=== PATIENT | male | born 1980 | race African-American/Black ===

== ENCOUNTER 2019-07-02 10:44 | Outpatient (CLI) | payer OTHER, SELFPAY ==
--- NOTE | ~2019-07-02 | XR_ITS ---
EXAMINATION: XR chest 2V 07/02/2019 10:59 INDICATION: Shortness of breath PROCEDURE: 2 view chest COMPARISON: 01/14/2019 FINDINGS: The lungs are clear. The cardiomediastinal silhouette is within normal limits. There are no pleural effusions. There is no pneumothorax suspected. There is dextroscoliosis of the lower tho racic spine. IMPRESSION: 1: NO ACUTE CARDIOPULMONARY DISEASE. Reviewed, dictated and finalized at location A.
== END 2019-07-02 10:45 | disposition home or self-care (01) ==
LOC: ANHIMG 10:48
PROVIDERS: PCP Internal Medicine; Visit Provider Internal Medicine
DX: R06.02 Shortness of breath (principal)
CPT/HCPCS: 71046

== ENCOUNTER 2019-11-24 11:18 | Outpatient (CLI) | payer OTHER, SELFPAY ==
--- NOTE | ~2019-11-24 | CT_ITS ---
EXAMINATION: CT abdomen pelvis wo/w con EXAM DATE: 11/24/2019 12:14 INDICATION: Right lower quadrant pain. Clinical concern for appendicitis. TECHNIQUE: Spiral CT of the abdomen without contrast followed by both abdomen and pelvis with 100 cc intravenous Omnipaque 350. Axial, coronal and sagittal images were reviewed. The dose-length produc t (DLP) for this examination was 2174.83 mGy-cm. The exposure was tailored according to patient size (auto mA exposure control), and iterative reconstruction (ASIR) was used as additional dose reductio n technique. Comparison is made to prior examination from 12/28/2015. FINDINGS: Appendix is normal. The liver, spleen, adrenal glands and pancreas are unremarkable. Gall bladder is unremarkable. No biliary obstruction. Portal and splenic veins are patent. Kidneys enha nce symmetrically. There is no hydronephrosis. No nephrolithiasis on the precontrast evaluation. Th e prostate is unremarkable. The bladder is unremarkable. There is no retroperitoneal or pelvic lymp hadenopathy. Small umbilical fat-containing hernia. The stomach and small bowel are unremarkable. There is expected amount of colonic stool. No free i ntraperitoneal gas. The heart is normal in size. There are no pericardial or pleural effusions. T he lung bases are unremarkable. There is mild thoracolumbar scoliosis. IMPRESSION: 1. No acute intra-abdominal findings. 2. Normal appendix. Reviewed, dictated and finalized at location B.
[2019-11-24 11:46] LABS: Basophils Absolute Auto 0.1 K/mm3 (0.0-0.1); Basophils Percent Auto 0.7 % (0.2-1.2); Eosinophils Absolute Auto 0.5 K/mm3 (0-0.3); Eosinophils Percent Auto 6.9 % (0-4.4); Hematocrit 41.8 % (42.0-52.0); Hemoglobin 13.4 g/dL (14.0-18.0); Immature Granulocyte Absolute 0.02 K/mm3 (0.00-0.031); Immature Granulocyte Percent A 0.3 % (0-0.5); Lymphocytes Absolute Auto 2.97 K/mm3 (0.9-3.2); Lymphocytes Percent Auto 42.6 % (18.3-44.2); Mean Corpuscular HGB Conc 32.1 g/dl (32-36); Mean Corpuscular Hemoglobin 27.2 pg (26-34); Mean Corpuscular Volume 84.8 fl (80-100); Mean Platelet Volume 11.1 fl (7.4-10.4); Monocytes Absolute Auto 0.5 K/mm3 (0.1-0.6); Monocytes Percent Auto 6.4 % (2.6-8.5); Neutrophils Percent Auto 43.1 % (45.5-73.1); Platelet Count Result 171 k/mm3 (150-375); Red Blood Count 4.93 M/mm3 (4.6-6.20); Red Cell Distribution Width 13.2 % (11.5-14.5)
[2019-11-24 11:53] LABS: Add Urine Microscopic? NO; Appearance Urine Clear (Clear); Bilirubin Urine Negative (Negative); Blood Urine Negative (Negative); Color Urine Straw (Yellow); Glucose Urine UA Negative (Negative); Ketones Urine Negative (Negative); Leukocyte Esterase Ur Negative LEU/UL (NEGATIVE); Mucus Urine Rare /lpf; Nitrate Urine Negative (Negative); Protein Urine Negative (Negative); RBC Urine 0-2 /hpf (0-2); Specific Grav Ur 1.013 (1.001-1.035); Squamous Epithelial Cell Urine Rare /hpf (Few); Urobilinogen Urine Negative mg/dL (<2.0); WBC Urine 0-3 /hpf (0-3)
[2019-11-24 11:58] LABS: Alanine Aminotransferase 51 U/L (4-50); Albumin Level 4.6 g/dL (3.5-5.1); Alkaline Phosphatase 64 U/L (38-126); Amylase 182 U/L (30-110); Anion Gap 7 mmol/L (8-16); Aspartate Amino Transferase 47 U/L (17-59); Bilirubin,Total 0.4 mg/dL (0.2-1.3); Blood Urea Nitrogen 14 mg/dL (9-20); Calcium 9.2 mg/dL (8.4-10.2); Carbon Dioxide 27 mmol/L (22-30); Chloride 102 mmol/L (98-107); Cholesterol 195 mg/dL (0-200); Estimated Glomerular Filt Rate > 60; Glucose 101 mg/dL (75-110); HDL Direct 38 mg/dL; Lipase 145 U/L (23-300); Potassium 4.5 mmol/L (3.4-5.0); Sodium 136 mmol/L (137-145); Triglycerides 120 mg/dL (<150)
[2019-11-24 12:09] LABS: LDL Cholesterol Direct 133 mg/dL
== END 2019-11-24 11:19 | disposition home or self-care (01) ==
PROVIDERS: PCP Internal Medicine; Visit Provider Internal Medicine
DX: R10.9 Unspecified abdominal pain (principal); K37 Unspecified appendicitis; E78.00 Pure hypercholesterolemia, unspecified; E78.5 Hyperlipidemia, unspecified; Z79.899 Other long term (current) drug therapy
CPT/HCPCS: 36415; 74178; 80053; 80061; 81003; 82150; 83036; 83690; 84443; 85025; Q9967

== ENCOUNTER 2019-12-02 08:59 | Emergency (ER) | payer OTHER, SELFPAY ==
--- NOTE | ~2019-12-02 | US_ITS ---
EXAMINATION: US right upper quadrant EXAM DATE: 12/02/2019 10:03 INDICATION: Right upper quadrant pain. TECHNIQUE: Multiple grayscale and Doppler images of the abdomen right upper quadrant were obtained (b y a technologist who performed the scan) and subsequently reviewed. There is no prior study for maxwell garibay. FINDINGS: The pancreatic head and body are normal in appearance. The pancreatic tail is not visualized. There is echogenic liver parenchyma, hepatic steatosis. There are no focal liver lesions identified. Th ere is no evidence of intrahepatic biliary duct dilation. Portal venous flow was seen in the hepatop edal, normal direction and has normal Doppler waveform. No right-sided hydronephrosis. Common bile poorly visualized from bowel gas but probably within normal limits given that dilated clarissa ts should be easier to identify. The gallbladder wall is normal in thickness, with expected amount of distention. No sonographic evidence of pericholecystic fluid. There is no cholelithiases. Technolo gist performing exam reports patient did not demonstrate sonographic Dugan's sign. Please note that this sign is less reliable in patients who have received pain medication. IMPRESSION: 1. Hepatic steatosis. 2. Unremarkable gallbladder. Reviewed, dictated and finalized at location A.
[2019-12-02 09:10] VITALS: BP 142/86; PULSE 61; RESP 18; TEMP 36.2; O2SAT 100
[2019-12-02 09:17] LABS: Basophils Absolute Auto 0.1 K/mm3 (0.0-0.1); Basophils Percent Auto 1.6 % (0.2-1.2); Eosinophils Absolute Auto 0.4 K/mm3 (0-0.3); Eosinophils Percent Auto 7.1 % (0-4.4); Hematocrit 44.1 % (42.0-52.0); Hemoglobin 14.2 g/dL (14.0-18.0); Immature Granulocyte Absolute 0.01 K/mm3 (0.00-0.031); Immature Granulocyte Percent A 0.2 % (0-0.5); Lymphocytes Absolute Auto 2.74 K/mm3 (0.9-3.2); Mean Corpuscular HGB Conc 32.2 g/dl (32-36); Mean Corpuscular Hemoglobin 27.8 pg (26-34); Mean Corpuscular Volume 86.3 fl (80-100); Mean Platelet Volume 11.3 fl (7.4-10.4); Monocytes Absolute Auto 0.4 K/mm3 (0.1-0.6); Monocytes Percent Auto 7.3 % (2.6-8.5); Neutrophils Absolute Auto 1.9 K/mm3 (1.3-6.7); Neutrophils Percent Auto 33.8 % (45.5-73.1); Platelet Count Result 173 k/mm3 (150-375); Red Blood Count 5.11 M/mm3 (4.6-6.20); Red Cell Distribution Width 13.2 % (11.5-14.5); White Blood Count 5.5 K/mm3 (4.5-10.0)
[2019-12-02 09:29] LABS: Alanine Aminotransferase 54 U/L (4-50); Albumin Level 4.7 g/dL (3.5-5.1); Alkaline Phosphatase 63 U/L (38-126); Anion Gap 8 mmol/L (8-16); Aspartate Amino Transferase 56 U/L (17-59); Bilirubin,Total 0.4 mg/dL (0.2-1.3); Blood Urea Nitrogen 13 mg/dL (9-20); Calcium 9.7 mg/dL (8.4-10.2); Carbon Dioxide 29 mmol/L (22-30); Chloride 102 mmol/L (98-107); Estimated CRCL calculation 106 ml/min; Estimated Glomerular Filt Rate > 60; Glucose 103 mg/dL (75-110); Lipase 185 U/L (23-300); Potassium 4.5 mmol/L (3.4-5.0); Sodium 139 mmol/L (137-145)
--- NOTE | 2019-12-02 09:37 | ED.ABDPAIN ---
HPI - Abdominal Pain General Chief Complaint: Abdominal Pain Stated Complaint: abd pain Time Seen by Provider: 12/02/19 09:06 History of Present Illness HPI narrative: Right sided abdominal pain for the past [address] and labs on 11/23. Today pain was worse and he had one episode of vomiting, which he had not had previously. At the time f my evaluation he has only mild pain. Nuasea resolved. Related Data Home Medications Medication Instructions Recorded Confirmed cabergoline 0.5 mg tablet 0.5 mg PO 2XW 02/10/19 losartan 25 mg tablet 12.5 mg PO DAILY tablet 02/10/19 metoprolol succinate 25 mg 25 mg PO DAILY 02/10/19 tablet,extended release 24 hr multivitamin-ferrous 1 tablet PO DAILY 02/10/19 fumarate-folic acid 18 mg-400 mcg tablet pantoprazole 40 mg tablet,delayed 40 mg PO QAM 02/10/19 release fluticasone propionate INTRANASAL 12/02/19 testosterone [Androderm] 12/02/19 Allergies Allergy/AdvReac Type Severity Reaction Status Date / Time lisinopril Allergy Unknown Cough Verified 12/02/19 09:18 shellfish derived Allergy Unknown break out Verified 12/02/19 09:18 Review of Systems Review of Systems: All systems reviewed & are unremarkable except as noted in HPI and below Constitutional: Constitutional: Denies fever(s) and Denies weakness Cardiovascular: Cardiovascular: Denies chest pain Respiratory: Respiratory: Denies dyspnea Gastrointestinal: Gastrointestinal: Reports abdominal pain, Denies constipation, Denies diarrhea, Reports nausea and Reports vomiting Genitourinary: Genitourinary: Denies hematuria and Denies dysuria Neurologic: Denies numbness and Denies weakness [facility] Family History Family History Father Diabetes mellitus Hypertension Family history of diabetes mellitus in first degree relative Patient's father is in good health Mother Hypertension Patient's mother is in good health Grandparent Family history of malignant neoplasm of breast Diabetes mellitus Cerebrovascular accident Other Family history of allergic disorder Family history of malignant neoplasm Social History Social History Smoking status: Never smoker Alcohol intake: current Gender identity (if verbalized by the patient): Male Exam Const: General: healthy appearing, no acute distress and alert Nutritional Appearance: well nourished Orientation/consciousness: patient oriented x3 HENMT: Head: normal to inspection Neck: Neck: normal visual inspection Resp: Effort & Inspection: normal respiratory effort Auscultation: clear to auscultation bilaterally, no rales, no rhonchi and no wheezes Cardio: Jugular venous distension: no JVD Rate: regular rate Rhythm: regular rhythm Heart sounds: no murmurs GI: Inspection: non-distended GI Palp: Yes Soft to palpation, Yes Tenderness to palpation present (GI) (RLQ), No Guarding due to palpation present (GI), No Palpable mass present and No Rebound tenderness present Skin: General skin exam: normal color Neuro: General: patient oriented x3 and moves all extremities Speech: normal speech Extrem: General: no edema Psych: Appearance: well kempt Affect: normal affect Course Vital Signs Vital signs: Vital Signs Temperature 36.2 C L 12/02/19 09:10 Pulse Rate 61 12/02/19 09:10 Respiratory Rate 18 12/02/19 09:10 Blood Pressure 142/86 H 12/02/19 09:10 Pulse Oximetry 100 12/02/19 09:10 Temperature 36.2 C L 12/02/19 09:10 Pulse Rate 59 L 12/02/19 11:29 Respiratory Rate 16 12/02/19 11:29 Blood Pressure 125/89 12/02/19 11:29 Pulse Oximetry 95 12/02/19 11:29 MDM - Abdominal Pain MDM Narrative Medical decision making narrative: Negative Ct last week. I do not think this needs to be repeated. I will get a gall bladder US to ruleout biliary colic. US negative. Pain i
[2019-12-02 09:39] LABS: Add Urine Microscopic? YES; Appearance Urine Clear (Clear); Bilirubin Urine Negative (Negative); Blood Urine Negative (Negative); Color Urine Straw (Yellow); Glucose Urine UA Negative (Negative); Ketones Urine Negative (Negative); Leukocyte Esterase Ur Negative LEU/UL (Negative); Mucus Urine Rare /lpf; Nitrate Urine Negative (Negative); Protein Urine Negative (Negative); Specific Grav Ur 1.015 (1.001-1.035); Urobilinogen Urine Negative mg/dL (<2.0); WBC Urine 0-3 /hpf
[2019-12-02 10:12] VITALS: BP 133/90; PULSE 57; RESP 16; O2SAT 97
[2019-12-02 10:50] VITALS: BP 132/95; PULSE 59; RESP 18; O2SAT 95
[2019-12-02] MEDS: DICYCLOMINE HCL INJ 20 MG/2 ML VIAL IM (11:13)
[2019-12-02 11:29] VITALS: BP 125/89; PULSE 59; RESP 16; O2SAT 95
== END 2019-12-02 11:29 | disposition home or self-care (01) ==
PROVIDERS: Emergency Provider Emergency Medicine; PCP Internal Medicine
DX: R10.9 Unspecified abdominal pain (principal); K76.0 Fatty (change of) liver, not elsewhere classified
CPT/HCPCS: 36415; 76705; 80053; 81001; 83690; 85025; 96372; 99284; J0500

== ENCOUNTER 2019-12-29 22:32 | Emergency (ER) | payer OTHER, SELFPAY ==
[2019-12-29 22:36] VITALS: BP 122/75; PULSE 90; RESP 16; TEMP 36.9; O2SAT 94
--- NOTE | 2019-12-29 22:41 | ED.WOUNDLAC ---
HPI - Wound/Laceration General Chief Complaint: Wound/Laceration Stated Complaint: POSS ABCESS Time Seen by Provider: 12/29/19 22:34 Source: patient Mode of arrival: ambulatory Limitations: no limitations History of Present Illness HPI narrative: THis patient is a 39 year old male who presents for evaluation of tailbone pain and swelling. He noticed pain on Sunday . He states he also noticed a tender and hard area to his tailbone. He states his didn't seeing anything but what appeared to be a pimple. HE denies nausea, vomiting, fever or chills. Related Data Home Medications Medication Instructions Recorded Confirmed cabergoline 0.5 mg tablet 0.5 mg PO 2XW 02/10/19 losartan 25 mg tablet 12.5 mg PO DAILY tablet 02/10/19 metoprolol succinate 25 mg 25 mg PO DAILY 02/10/19 tablet,extended release 24 hr multivitamin-ferrous 1 tablet PO DAILY 02/10/19 fumarate-folic acid 18 mg-400 mcg tablet pantoprazole 40 mg tablet,delayed 40 mg PO QAM 02/10/19 release fluticasone propionate INTRANASAL 12/02/19 testosterone [Androderm] 12/02/19 Allergies Allergy/AdvReac Type Severity Reaction Status Date / Time lisinopril Allergy Unknown Cough Verified 12/29/19 22:33 shellfish derived Allergy Unknown break out Verified 12/29/19 22:33 Review of Systems Review of Systems: All systems reviewed & are unremarkable except as noted in HPI and below PMFSH Past Medical History Medical History (Updated 12/30/19 @ 00:21 by Corry Delgado MD) Dyslipidemia Obstructive sleep apnea syndrome Family History Family History Father Diabetes mellitus Hypertension Family history of diabetes mellitus in first degree relative Patient's father is in good health Mother Hypertension Patient's mother is in good health Grandparent Family history of malignant neoplasm of breast Diabetes mellitus Cerebrovascular accident Other Family history of allergic disorder Family history of malignant neoplasm Social History Social History Smoking status: Never smoker Alcohol intake: current Gender identity (if verbalized by the patient): Male Exam Const: General: no acute distress and alert Orientation/consciousness: patient oriented x3 HENMT: Head: normocephalic and atraumatic Eyes: EOM: EOMs intact bilaterally Chest: Chest palpation & inspection: normal inspection of the chest Resp: Effort & Inspection: normal respiratory effort GI: GI Palp: Yes Soft to palpation, No Tenderness to palpation present (GI), No Guarding due to palpation present (GI) and No Rigid due to palpation Skin: Other: no erythema or swelling noted a sacrum , there is small area expressing pinpoint amount of pus at crease of buttock Neuro: General: patient oriented x3 and moves all extremities Course Reevaluation(s) Reevaluation #1: I have explained to patient discharge treatment and plan of pilonidal cyst that was I and D. Date: 12/30/19 Time: 00:19 Vital Signs Vital signs: Vital Signs Temperature 98.5 F 12/29/19 22:36 Pulse Rate 90 12/29/19 22:36 Respiratory Rate 16 12/29/19 22:36 Blood Pressure 122/75 12/29/19 22:36 Pulse Oximetry 94 12/29/19 22:36 Temperature 98.5 F 12/29/19 22:36 Pulse Rate 81 12/30/19 00:46 Respiratory Rate 18 12/30/19 00:46 Blood Pressure 121/85 12/30/19 00:46 Pulse Oximetry 95 12/30/19 00:46 Procedures Abscess I/D other: Date of Incision: 12/30/19 Time of Incision: 00:18 Local Anesthetic: lidocaine 1% and with epi Amount of anesthesia used (mL): 1 Technique: incised with #11 blade Amount of fluid expressed (mL): 1 Irrigation: Yes Packing used?: plain I&D Results: Pus and Blood Abcess I&D Additional Comments: I and D of pilonidal cyst at crease of butt
[2019-12-29] MEDS: LIDO 1%/EPINEPHRINE 1:100,000 20 ML VIAL INFILTRATE (22:50)
--- NOTE | 2019-12-29 23:15 | PC.NURSE ---
rn called pharmacy - 2nd attempt.
--- NOTE | 2019-12-29 23:35 | PC.NURSE ---
11 blade, iodine swab, packing, lidocaine, lac tray at bedside per erp request.
[2019-12-30 00:46] VITALS: BP 121/85; PULSE 81; RESP 18; O2SAT 95
== END 2019-12-30 00:47 | disposition home or self-care (01) ==
PROVIDERS: Emergency Provider General Practice; PCP Internal Medicine
DX: L05.01 Pilonidal cyst with abscess (principal); G47.33 Obstructive sleep apnea (adult) (pediatric); E78.5 Hyperlipidemia, unspecified
CPT/HCPCS: 10080; 99283

== ENCOUNTER 2020-06-07 17:02 | Emergency (ER) | payer OTHER, SELFPAY ==
--- NOTE | ~2020-06-07 | XR_ITS ---
EXAMINATION: [id number] INDICATION: Left back pain TECHNIQUE: A frontal view of the chest and 3 views of the left ribs were obtained. COMPARISON: None. FINDINGS: There is minimal airspace opacity in the right lung base. No pleural effusion or pneumothor ax is identified. The cardiomediastinal silhouette is normal. No displaced rib fracture is seen. Ther e is thoracolumbar dextroscoliosis. IMPRESSION: 1. No displaced rib fracture identified. 2. Minimal right basilar airspace opacity, consistent with atelectasis versus pneumonia. Reviewed, dictated and finalized at location A. IMPRESSION: 1. No displaced rib fracture identified. 2. Minimal right basilar airspace opacity, consistent with atelectasis versus p neumonia.
[2020-06-07 17:27] VITALS: BP 133/74; PULSE 69; RESP 18; TEMP 36.2; O2SAT 98
--- NOTE | 2020-06-07 18:18 | ED.GENADULT ---
HPI - General Adult General Chief complaint: Unspecified Stated complaint: rib pain after a fall Time Seen by Provider: 06/07/20 17:34 Source: patient Mode of arrival: ambulatory Limitations: no limitations History of Present Illness HPI narrative: Patient presents with chief complaint of pain to the posterior left rib that occurred after he fell this morning. Patient states it is painful when he rotates or takes a deep breath. Patient denies chest pain or shortness of breath. Patient has fever, chills, cough. Related Data Home Medications Medication Instructions Recorded Confirmed cabergoline 0.5 mg tablet 0.5 mg PO 2XW 02/10/19 05/25/20 losartan 25 mg tablet 12.5 mg PO DAILY tablet 02/10/19 05/25/20 metoprolol succinate 25 mg 25 mg PO DAILY 02/10/19 05/25/20 tablet,extended release 24 hr multivitamin-ferrous 1 tablet PO DAILY 02/10/19 05/25/20 fumarate-folic acid 18 mg-400 mcg tablet pantoprazole 40 mg tablet,delayed 40 mg PO QAM 02/10/19 05/25/20 release fluticasone propionate INTRANASAL 12/02/19 05/25/20 testosterone [Androderm] 12/02/19 05/25/20 Allergies Allergy/AdvReac Type Severity Reaction Status Date / Time lisinopril Allergy Unknown Cough Verified 06/07/20 17:30 shellfish derived Allergy Unknown break out Verified 06/07/20 17:30 Review of Systems Review of Systems: Narrative: CONSTITUTIONAL: Denies fever, chills, or sweats. EYES: Denies visual changes, redness, or discharge. ENT: Denies rhinorrhea, congestion, sore throat, or otalgia. CARDIOVASCULAR: Denies chest pain, palpitations, or edema. RESPIRATORY: Reports left rib pain denies cough or dyspnea. GASTROINTESTINAL: Denies abdominal pain, nausea, vomiting, or diarrhea. GENITOURINARY: Denies dysuria or hematuria. SKIN: Denies rash or itching. MUSCULOSKELETAL: Denies back pain, joint pain, or myalgia. NEUROLOGIC: Denies headache, numbness, dizziness, or weakness. PSYCHIATRIC: Denies anxiety or depression. [facility] Past Medical History Medical History (Updated 06/07/20 @ 19:07 by Kei Akhtar PA-C) Dyslipidemia Obstructive sleep apnea syndrome Family History Family History Father Diabetes mellitus Hypertension Family history of diabetes mellitus in first degree relative Patient's father is in good health Mother Hypertension Patient's mother is in good health Grandparent Family history of malignant neoplasm of breast Diabetes mellitus Cerebrovascular accident Other Family history of allergic disorder Family history of malignant neoplasm Social History Social History (Updated 05/25/20 @ 13:15 by Adrianne Tee MA) Smoking status: Never smoker Alcohol intake: current Gender identity (if verbalized by the patient): Male Exam Narrative: Exam Narrative: GENERAL: Well-appearing, well-nourished, and in no acute distress. HEAD: Normocephalic, atraumatic. EYES: PERRLA and EOMI. NECK: Supple. No adenopathy or masses. No carotid bruits or JVD CHEST: Tenderness to palpation of left posterior ribs. No flail chesting noted. No ecchymosis noted. Clear to auscultation. No respiratory distress. No wheezes rales or rhonchi HEART: Regular rate and rhythm. No murmur heard. Normal peripheral pulses. EXTREMITIES: Normal range of motion. No edema. SKIN: Warm, dry, no rash. NEURO: No focal deficits. Alert and oriented x3. PSYCH: Normal mood and affect. Course Vital Signs Vital signs: Vital Signs Temperature 97.2 F L 06/07/20 17:27 Pulse Rate 69 06/07/20 17:27 Respiratory Rate 18 06/07/20 17:27 Blood Pressure 133/74 06/07/20 17:27 Pulse Oximetry 98 06/07/20 17:27 Temperature 97.2 F L 06/07/20 17:27 Pulse Rate 69 06/07/20 19:49 Respiratory Rate 18 06/07/20 19:49 Blood Pressure 129/70 06/07/20 19:49 Pulse Oximetry 99 06/07/20 19:49 Medical Decision Making MDM Narrative Medical decision making narrative:
[2020-06-07 19:49] VITALS: BP 129/70; PULSE 69; RESP 18; O2SAT 99
== END 2020-06-07 19:52 | disposition home or self-care (01) ==
PROVIDERS: Emergency Provider Emergency Medicine; PCP Internal Medicine
DX: S20.212A Contusion of left front wall of thorax, initial encounter (principal); E78.5 Hyperlipidemia, unspecified; G47.33 Obstructive sleep apnea (adult) (pediatric); W19.XXXA Unspecified fall, initial encounter
CPT/HCPCS: 71101; 99283

== ENCOUNTER 2020-10-19 16:21 | Emergency (ER) | payer OTHER, SELFPAY ==
--- NOTE | ~2020-10-19 | XR_ITS ---
EXAMINATION: XR ribs RT 2V DATE: 10/19/2020 17:04 INDICATION: Mid lateral right rib pain post injury 6 days prior TECHNIQUE: 3 views of the right ribs were obtained. COMPARISON: Chest radiograph dated 07/02/2019 FINDINGS: No rib fractures identified. Visual is portions of the right lung is clear with no focal airspace opa cities, pulmonary edema, pleural effusion or pneumothorax. S-shaped thoracolumbar scoliosis with 32 d egrees lower thoracic dextroscoliosis and 17 degree lumbar levoscoliosis. IMPRESSION: 1. No rib fractures or acute cardiopulmonary disease in the right hemithorax. Reviewed, dictated and finalized at location A.
[2020-10-19 16:32] VITALS: BP 117/69; PULSE 69; RESP 16; TEMP 35.6; O2SAT 99
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
== END 2020-10-19 17:47 | disposition home or self-care (01) ==
PROVIDERS: Emergency Provider Nurse Practitioner Family; PCP Internal Medicine
DX: R25.2 Cramp and spasm (principal); S20.211A Contusion of right front wall of thorax, initial encounter; W51.XXXA Accidental striking against or bumped into by another person, initial encounter; E78.5 Hyperlipidemia, unspecified; G47.33 Obstructive sleep apnea (adult) (pediatric)
CPT/HCPCS: 71100; 99213; G0463

== ENCOUNTER 2020-11-29 11:32 | Outpatient (CLI) | payer OTHER, SELFPAY ==
[2020-11-29 12:17] LABS: Alanine Aminotransferase 80 U/L (4-50); Albumin Level 4.8 g/dL (3.5-5.1); Alkaline Phosphatase 63 U/L (38-126); Anion Gap 10 mmol/L (8-16); Aspartate Amino Transferase 60 U/L (17-59); Bilirubin,Total 0.3 mg/dL (0.2-1.3); Blood Urea Nitrogen 14 mg/dL (9-20); Calcium 9.6 mg/dL (8.4-10.2); Carbon Dioxide 25 mmol/L (22-30); Chloride 102 mmol/L (98-107); Estimated Glomerular Filt Rate > 60; Glucose 103 mg/dL (65-110); Potassium 4.2 mmol/L (3.4-5.0); Sodium 137 mmol/L (137-145)
[2020-11-29 12:33] LABS: Hemoglobin A1C 6.3 % (<5.7)
[2020-11-29 12:55] LABS: Vitamin D 25 Hydroxy 30.6 ng/mL
[2020-11-29 13:37] LABS: Creatinine Urine 198.5 mg/dL
[2020-11-29 13:42] LABS: MALB Creatinine Ratio 5.1 mg/g (0-30); Microalbumin Urine Random 10.2 mg/L (0-16.7)
== END 2020-11-29 11:33 | disposition home or self-care (01) ==
LOC: ANHLAB 11:36
PROVIDERS: PCP Internal Medicine; Visit Provider Internal Medicine
DX: E11.9 Type 2 diabetes mellitus without complications (principal); E78.5 Hyperlipidemia, unspecified; E55.9 Vitamin D deficiency, unspecified
CPT/HCPCS: 36415; 80053; 82043; 82306; 83036

== ENCOUNTER 2020-12-30 08:11 | Outpatient (CLI) | payer OTHER, SELFPAY ==
--- NOTE | ~2020-12-30 | US_ITS ---
EXAMINATION: US abdomen complete DATE: 12/30/2020 09:11 INDICATION: Other specified abnormal findings of blood chemistry TECHNIQUE: Multiple grayscale and Doppler ultrasound images of the abdomen were obtained. COMPARISON: 12/02/2019 FINDINGS: Bowel gas obscures visualization of the pancreas. The visualized portions of the pancreas a re unremarkable. The liver is normal with normal echogenicity and echotexture. No surface nodularity. Normal hepatopetal flow in the main portal vein. The gallbladder is normal with no abnormal wall thi ckening, pericholecystic fluid or stones. The normal common bile duct measures 5 mm. There was no son ographic Dugan sign. The visualized portions of the aorta and inferior vena cava are normal. The right kidney measures 11.4 x 6.0 x 6.5 cm. The left kidney measures 11.5 x 4.7 x 4.8 cm. The kidn eys demonstrate normal parenchymal echogenicity. There is no hydronephrosis. The spleen is normal in appearance and measures 10.9 cm. IMPRESSION: 1. No sonographic correlate for the patient's symptoms. Reviewed, dictated and finalized at location A.
[2020-12-30 09:40] LABS: Alanine Aminotransferase 71 U/L (4-50); Albumin Level 4.6 g/dL (3.5-5.1); Alkaline Phosphatase 58 U/L (38-126); Anion Gap 8 mmol/L (8-16); Aspartate Amino Transferase 73 U/L (17-59); Bilirubin,Total 0.6 mg/dL (0.2-1.3); Blood Urea Nitrogen 15 mg/dL (9-20); Calcium 9.3 mg/dL (8.4-10.2); Carbon Dioxide 30 mmol/L (22-30); Chloride 101 mmol/L (98-107); Cholesterol 197 mg/dL (0-200); Estimated Glomerular Filt Rate > 60; Glucose 104 mg/dL (65-110); HDL Direct 31 mg/dL; Potassium 4.4 mmol/L (3.4-5.0); Sodium 139 mmol/L (137-145); Triglycerides 85 mg/dL (<150)
[2020-12-30 09:51] LABS: LDL Cholesterol Direct 136 mg/dL
[2021-01-02 15:38] LABS: Albumin 4.5 g/dL (3.8-4.8); Alpha 1 Globulin 0.2 g/dL (0.2-0.3); Alpha 2 Globulin 0.7 g/dL (0.5-0.9); Beta 1 Globulin 0.4 g/dL (0.4-0.6); Gamma Globulin 1.6 g/dL (0.8-1.7); Protein, Total 7.8 g/dL (6.1-8.1)
[2021-01-05 18:45] LABS: Creatinine, Random Urine 211 mg/dL (20-320); Total Protein/Creatinine Ratio 28 mg/g creat (22-128)
== END 2020-12-30 08:12 | disposition home or self-care (01) ==
LOC: ANHIMG 08:16
PROVIDERS: PCP Internal Medicine; Visit Provider Internal Medicine
DX: E78.2 Mixed hyperlipidemia (principal); R79.89 Other specified abnormal findings of blood chemistry; R77.8 Other specified abnormalities of plasma proteins
CPT/HCPCS: 36415; 76700; 80053; 80061; 82570; 84155; 84156; 84165; 84166

== ENCOUNTER 2021-01-09 08:38 | Emergency (ER) | payer OTHER, SELFPAY ==
--- NOTE | ~2021-01-09 | XR_ITS ---
EXAMINATION: XR shoulder RT min 2V DATE: 01/09/2021 09:27 INDICATION: Right shoulder pain and inability to abduct the right shoulder post injury TECHNIQUE: AP internally and externally rotated, AP oblique externally rotated and transscapular Y vi ews of the right shoulder were obtained. COMPARISON: None FINDINGS: Normal alignment. No fracture. Glenohumeral joint is normal. Mild acromioclavicular osteoarthritis w ith small inferiorly directed osteophyte. Soft tissues are unremarkable. Thoracic dextroscoliosis. Ri ght lung is clear. IMPRESSION: Mild right acromioclavicular osteoarthritis. No acute osseous abnormality. Reviewed, dictated and finalized at location A. ANGE ARCHITECT
[2021-01-09 08:47] VITALS: BP 124/76; PULSE 79; RESP 16; TEMP 36.2; O2SAT 99
--- NOTE | 2021-01-09 09:42 | ED.UPPEXIN ---
HPI - Extremity Injury (Upper) General Chief Complaint: Extremity Injury, Upper Stated Complaint: Right Shoulder Pain Time Seen by Provider: 01/09/21 09:09 Source: patient and RN notes reviewed Mode of arrival: ambulatory Limitations: no limitations History of Present Illness HPI narrative: Patient presents today complaining of right shoulder injury. 1 week ago he fell onto his right shoulder while playing basketball. States that for the 2 days following the injury he had tingling in his third and fourth fingers, but this has fully resolved. He does report feeling some weakness in the arm when he goes to take up his child. He currently rates his pain 7/10 with movement. Pain increases with movement, lifting, laying on his right side, and turning his head to the right. He has been taking Advil with some mild relief. MD complaint: injury to: right and shoulder Related Data Home Medications Medication Instructions Recorded Confirmed cabergoline 0.5 mg tablet 0.5 mg PO 2XW 02/10/19 01/09/21 losartan 25 mg tablet 12.5 mg PO DAILY tablet 02/10/19 01/09/21 metoprolol succinate 25 mg 25 mg PO DAILY 02/10/19 01/09/21 tablet,extended release 24 hr testosterone [Androderm] 4 mg TRANSDERMAL DAILY 12/02/19 01/09/21 budesonide 1 mg INHALATION PRN PRN 01/09/21 01/09/21 Allergies Allergy/AdvReac Type Severity Reaction Status Date / Time lisinopril Allergy Unknown Cough Verified 01/09/21 09:05 shellfish derived Allergy Unknown break out Verified 01/09/21 09:05 Review of Systems Review of Systems: CONSTITUTIONAL: Denies body aches, fever, chills, or sweats. EYES: Denies visual changes, redness, or discharge. ENT: Denies rhinorrhea, congestion, sore throat, or otalgia. CARDIOVASCULAR: Denies chest pain, palpitations, or edema. RESPIRATORY: Denies cough or dyspnea. GASTROINTESTINAL: Denies abdominal pain, nausea, vomiting, or diarrhea. GENITOURINARY: Denies dysuria or hematuria. SKIN: Denies rash, itching, or wounds. MUSCULOSKELETAL: Denies back pain, or myalgia. + Right shoulder injury NEUROLOGIC: Denies headache, numbness, tingling, or weakness. PSYCH: Denies depression or anxiety. PMFSH Past Medical History Medical History Dyslipidemia Obstructive sleep apnea syndrome Family History Family History Father Diabetes mellitus Hypertension Family history of diabetes mellitus in first degree relative Patient's father is in good health Mother Hypertension Patient's mother is in good health Grandparent Family history of malignant neoplasm of breast Diabetes mellitus Cerebrovascular accident Other Family history of allergic disorder Family history of malignant neoplasm Social History Social History Smoking status: Never smoker Alcohol intake: current Drinks per week: 1 Alcohol use details: social Gender identity (if verbalized by the patient): Male Comments At time of signature, I have reviewed and agree with nursing past medical, surgical, social and family history unless otherwise noted. Please see nursing chart for further information. There is no relevant family history pertinent to the presenting complaint Exam Narrative: GENERAL: Well-appearing, well-nourished, and in no acute distress. HEAD: Normocephalic, atraumatic. EYES: EOMI. No redness or drainage. Conjunctivae normal. ENT: Mucous membranes pink and moist. NECK: Normal AROM. No midline tenderness. Right cervical paraspinal muscle tenderness that extends to the superior shoulder. Full range of motion. CHEST: No respiratory distress. EXTREMITIES: Right shoulder: Tenderness to the superior, anterior, lateral shoulder. Tenderness along the clavicle. No deformity noted. Full AROM with increased pain. Strength normal increased pain with ran
== END 2021-01-09 10:05 | disposition home or self-care (01) ==
PROVIDERS: Emergency Provider Nurse Practitioner; PCP Internal Medicine
DX: S46.911A Strain of unspecified muscle, fascia and tendon at shoulder and upper arm level, right arm, initial encounter (principal); W19.XXXA Unspecified fall, initial encounter; Y93.67 Activity, basketball; E78.5 Hyperlipidemia, unspecified; G47.33 Obstructive sleep apnea (adult) (pediatric)
CPT/HCPCS: 73030; 99213; G0463

== ENCOUNTER 2021-05-02 14:50 | Emergency (ER) | payer OTHER, SELFPAY ==
[2021-05-02 14:58] VITALS: BP 138/92; PULSE 77; RESP 16; TEMP 36.2; O2SAT 99
--- NOTE | 2021-05-02 15:05 | ED.URI ---
HPI - URI/Sore Throat General Chief Complaint: Upper Respiratory Infection Stated Complaint: Sore Throat Time Seen by Provider: 05/02/21 15:09 Source: patient and RN notes reviewed Mode of arrival: ambulatory Limitations: no limitations History of Present Illness HPI Narrative: 40-year-old male presented for complaint of sore throat for about 2 days. He states he woke multiple times in the night due to dryness, states he had to remove his CPAP. Has been using Gomez's and gargling with warm salt water and [id number] medications with minimal relief. He endorses beginning of the month with COVID, the symptoms have since resolved. He currently denies sinus pressure/congestion, headache, ear pain, dizziness, nausea, vomiting, cough or shortness of breath. MD elicited complaint: sore throat Related Data Home Medications Medication Instructions Recorded Confirmed losartan 25 mg tablet 12.5 mg PO DAILY tablet 02/10/19 01/09/21 metoprolol succinate 25 mg 25 mg PO DAILY 02/10/19 01/09/21 tablet,extended release 24 hr pantoprazole 40 mg PO BID 05/02/21 05/02/21 testosterone cypionate 200 mg IM [id number] 05/02/21 05/02/21 Allergies Allergy/AdvReac Type Severity Reaction Status Date / Time lisinopril Allergy Unknown Cough Verified 05/02/21 15:11 shellfish derived Allergy Unknown break out Verified 05/02/21 15:11 Review of Systems Review of Systems: CONSTITUTIONAL: Denies malaise, chills, sweats, fever EYES: Denies visual changes, redness, or discharge ENT: Denies rhinorrhea, congestion, sinus pain, otalgia, endorses sore throat CARDIOVASCULAR: Denies chest pain, palpitations, edema RESPIRATORY: Reports cough, post nasal drainage. Denies dyspnea GASTROINTESTINAL: Denies abdominal pain, nausea, vomiting, diarrhea SKIN: Denies rash or itching MUSCULOSKELETAL: Denies myalgia NEUROLOGIC: Denies headache PMFSH Past Medical History Medical History Dyslipidemia Obstructive sleep apnea syndrome Family History Family History Father Diabetes mellitus Hypertension Family history of diabetes mellitus in first degree relative Patient's father is in good health Mother Hypertension Patient's mother is in good health Grandparent Family history of malignant neoplasm of breast Diabetes mellitus Cerebrovascular accident Other Family history of allergic disorder Family history of malignant neoplasm Social History Social History Alcohol intake: current Drinks per week: 1 Alcohol use details: social Substance use: never Substance use type: does not use Gender identity (if verbalized by the patient): Male Exam Narrative: GENERAL: Well -appearing HEAD: Normocephalic EYES: PERRLA, conjunctivae clear ENT: Mucous membranes moist. TM pearly cline with dull light reflex bilaterally; no tragal tenderness. Oropharynx erythematous without lesions or exudate, no drooling, no hoarseness, no trismus, uvula midline. No tripod positioning, muffled voice, soft palate or pharyngeal wall bulging NECK: Supple. No lymphadenopathy CHEST: Clear to auscultation, breath sounds equal. No wheezing, rhonchi, rales, or stridor. No respiratory distress, speaks in full sentences. HEART: Regular rate and rhythm. No murmur heard. SKIN: Warm, dry, no rash. NEURO: Alert and oriented x3. PSYCH: Normal mood and affect Course Course Emergency Course: Strep negative Patient is aware of diagnosis, understands and agrees to treatment plan. Anticipatory guidance given. Patient agrees to follow-up as directed and is aware of reasons to seek care at the emergency department. Portions of this record may have been created with voice recognition software Level of Care: Express Care Visit Vital Signs Vital signs: Vital Signs Temperature 97.1 F L
== END 2021-05-02 15:25 | disposition home or self-care (01) ==
PROVIDERS: Emergency Provider Nurse Practitioner Family; PCP Internal Medicine
DX: J02.9 Acute pharyngitis, unspecified (principal); E78.5 Hyperlipidemia, unspecified; G47.33 Obstructive sleep apnea (adult) (pediatric); Z86.16 Personal history of COVID-19
CPT/HCPCS: 87081; 87880; 99213; G0463

== ENCOUNTER 2021-05-23 09:36 | Outpatient (CLI) | payer OTHER, SELFPAY ==
[2021-05-23 10:08] LABS: Alanine Aminotransferase 94 U/L (4-50); Albumin Level 4.5 g/dL (3.5-5.1); Alkaline Phosphatase 62 U/L (38-126); Anion Gap 7 mmol/L (8-16); Aspartate Amino Transferase 76 U/L (17-59); Bilirubin,Total 0.4 mg/dL (0.2-1.3); Blood Urea Nitrogen 14 mg/dL (9-20); Calcium 9.1 mg/dL (8.4-10.2); Carbon Dioxide 27 mmol/L (22-30); Chloride 103 mmol/L (98-107); Estimated Glomerular Filt Rate > 60; Glucose 116 mg/dL (65-110); Potassium 4.1 mmol/L (3.4-5.0); Sodium 137 mmol/L (137-145)
[2021-05-23 10:10] LABS: Hemoglobin A1C 6.1 % (<5.7)
[2021-05-23 10:23] LABS: Creatinine Urine 291.1 mg/dL
[2021-05-23 10:28] LABS: MALB Creatinine Ratio 9.8 mg/g (0-30); Microalbumin Urine Random 28.5 mg/L (0-16.7)
== END 2021-05-23 09:37 | disposition home or self-care (01) ==
LOC: ANHLAB 09:39
PROVIDERS: PCP Internal Medicine; Visit Provider Internal Medicine
DX: R79.89 Other specified abnormal findings of blood chemistry (principal); E11.9 Type 2 diabetes mellitus without complications
CPT/HCPCS: 36415; 80053; 82043; 83036

== ENCOUNTER 2021-08-01 21:46 | Emergency (ER) | payer OTHER, SELFPAY ==
[2021-08-01 21:47] VITALS: BP 140/100; PULSE 80; RESP 18; TEMP 36.3; O2SAT 98
--- NOTE | 2021-08-01 22:48 | ED.SKABFB ---
HPI - Skin/Abscess/Foreign Bdy General Chief complaint: Skin/Abscess/Foreign Body Stated complaint: ingrown cyst Time Seen by Provider: 08/01/21 22:08 History of Present Illness HPI narrative: 41-year-old male presents to the emergency room for evaluation of abscess to the his scalp. Patient states he recently shaved his head, and noticed painful wound. Patient states that wound has not been draining. Patient also states he noticed a painful lump to the base of his skull on the right side. Patient denies fever. Related Data Home Medications Medication Instructions Recorded Confirmed losartan 25 mg tablet 12.5 mg PO DAILY 02/10/19 05/23/21 metoprolol succinate 25 mg 25 mg PO DAILY 02/10/19 05/23/21 tablet,extended release 24 hr pantoprazole 40 mg tablet,delayed 40 mg PO BID 05/02/21 05/23/21 release testosterone cypionate 200 mg/mL 200 mg IM [id number] 05/02/21 05/23/21 intramuscular oil Allergies Allergy/AdvReac Type Severity Reaction Status Date / Time lisinopril Allergy Unknown Cough Verified 07/13/21 08:52 shellfish derived Allergy Unknown break out Verified 07/13/21 08:52 Review of Systems Review of Systems: CONSTITUTIONAL: Denies fever, chills, or sweats. EYES: Denies visual changes, redness, or discharge. ENT: Denies rhinorrhea, congestion, sore throat, or otalgia. CARDIOVASCULAR: Denies chest pain, palpitations, or edema. RESPIRATORY: Denies cough or dyspnea. GASTROINTESTINAL: Denies abdominal pain, nausea, vomiting, or diarrhea. GENITOURINARY: Denies dysuria or hematuria. SKIN: Reports wound to the scalp MUSCULOSKELETAL: Denies back pain, joint pain, or myalgia. NEUROLOGIC: Denies headache, numbness, dizziness, or weakness. PSYCHIATRIC: Denies anxiety or depression. [facility] Past Medical History Medical History Dyslipidemia Obstructive sleep apnea syndrome Family History Family History Father Diabetes mellitus Hypertension Family history of diabetes mellitus in first degree relative Patient's father is in good health Mother Hypertension Patient's mother is in good health Grandparent Family history of malignant neoplasm of breast Diabetes mellitus Cerebrovascular accident Other Family history of allergic disorder Family history of malignant neoplasm Social History Social History Alcohol intake: current Drinks per week: 1 Alcohol use details: social Substance use: never Substance use type: does not use Gender identity (if verbalized by the patient): Male Exam Narrative: GENERAL: Well-appearing, well-nourished, and in no acute distress. HEAD: Normocephalic, atraumatic. EYES: PERRLA and EOMI. NECK: Supple. Nonmobile, painless, mass to the right occipital lymph node chain CHEST: Clear to auscultation. No respiratory distress. No wheezes rales or rhonchi HEART: Regular rate and rhythm. No murmur heard. Normal peripheral pulses. ABDOMEN: Soft, nontender, nondistended, normal active bowel sounds. EXTREMITIES: Normal range of motion. No edema. SKIN: Erythematous, swollen follicular papule to the scalp NEURO: No focal deficits. Alert and oriented x3. PSYCH: Normal mood and affect. Course Vital Signs Vital signs: Vital Signs Temperature 36.3 C L 08/01/21 21:47 Pulse Rate 80 08/01/21 21:47 Respiratory Rate 18 08/01/21 21:47 Blood Pressure 140/100 H 08/01/21 21:47 Pulse Oximetry 98 08/01/21 21:47 Oxygen Delivery Room Air 08/01/21 21:47 Temperature 36.3 C L 08/01/21 21:47 Pulse Rate 80 08/01/21 21:47 Respiratory Rate 18 08/01/21 21:47 Blood Pressure 140/100 H 08/01/21 21:47 Pulse Oximetry 98 08/01/21 21:47 Oxygen Delivery Room Air 08/01/21 21:47 MDM - Skin/Abscess/Foreign Bdy MDM Narrative Medical decision making narrative: 41-year-old male
[2021-08-01] MEDS: CEPHALEXIN 500 MG CAPSULE PO (22:58)
== END 2021-08-01 23:03 | disposition home or self-care (01) ==
PROVIDERS: Emergency Provider Nurse Practitioner Family; PCP Internal Medicine
DX: L02.811 Cutaneous abscess of head [any part, except face] (principal)
CPT/HCPCS: 99283; A9270

== ENCOUNTER 2021-08-10 15:52 | Outpatient (CLI) | payer OTHER, SELFPAY ==
--- NOTE | ~2021-08-10 | US_ITS ---
US soft tissue head and neck 08/10/2021 16:24 Indication: Palpable right neck mass Procedure: High-resolution Limited ultrasound of the right neck Comparison: No prior studies for comparison. Findings: In the area of palpable concern in the right neck posterior to the ear there is an oval cir cumscribed hypoechoic mass measuring 2 x 1.3 x 0.6 cm with an effaced echogenic hilum, consistent wit h enlarged lymph node. No additional masses are identified. No significant internal vascularity. Impression: 1: Enlarged right posterior auricular lymph node measuring 2 x 1.3 x 0.6 cm, most likely reactive, al though other etiologies should be considered with the appropriate clinical history (i.e. lymphoma and metastatic disease). Consider correlation with contrast-enhanced CT neck to assess for additional ly mphadenopathy. Reviewed, dictated and finalized at location B. Impression: 1: Enlarged right posterior auricular lymph node measuring 2 x 1.3 x 0.6 cm, mo st likely reactive, although other etiologies should be considered with the darrel ropriate clinical history (i.e. lymphoma and metastatic disease). Consider patrick elation with contrast-enhanced CT neck to assess for additional lymphadenopathy .
== END 2021-08-10 15:53 | disposition home or self-care (01) ==
LOC: ANHIMG 15:53
PROVIDERS: PCP Internal Medicine; Visit Provider Nurse Practitioner
DX: R59.1 Generalized enlarged lymph nodes (principal)
CPT/HCPCS: 76536

== ENCOUNTER 2022-02-15 07:54 | Outpatient (CLI) | payer OTHER, SELFPAY ==
--- NOTE | ~2022-02-15 | CT_ITS ---
CT scan of the Neck Technique: 3 mm axial scans were obtained through the neck after intravenous administration of 75 cc Isovue. Coronal and sagittal reconstructions of the neck were obtained. Dose reduction technique was used on this scan by utilizing automated exposure control and iterative reconstruction technique. The dose-length product (DLP) was 511.89 mGy-cm. Clinical History: Posterior cervical lymphadenopathy Findings: There are mildly prominent right-sided lymph nodes, predominantly level 2 extending inferiorly to lev el 4/5. Level 2 node measures 1.5 x 1.1 cm (axial image 42). Level 4/5 nodes measure 1.4 x 1.3 cm (ax ial image 68 for example). No abnormal appearing left-sided lymph nodes seen. Parapharyngeal spaces a ppear normal bilaterally. The parotid and submandibular glands appear normal. The pharyngeal mucosal spaces appear normal. No other soft tissue masses are seen in the neck. The thyroid gland appears normal. Images of the lung apices reveal no abnormalities. Impression: Mild right-sided cervical lymphadenopathy, as detailed above, nonspecific. These probably represent r eactive/inflammatory lymph nodes. If the lesion progresses or fails to resolve, consider additional w orkup for any possibility of lymphoma or other neoplastic disease. Reviewed, dictated and finalized at location [] SILVERER Impression: Mild right-sided cervical lymphadenopathy, as detailed above, nonspecific. Thes e probably represent reactive/inflammatory lymph nodes. If the lesion progresse s or fails to resolve, consider additional workup for any possibility of lympho ma or other neoplastic disease.
== END 2022-02-15 07:55 | disposition home or self-care (01) ==
LOC: ANHIMG 08:01
PROVIDERS: PCP Internal Medicine; Visit Provider Nurse Practitioner
DX: R59.0 Localized enlarged lymph nodes (principal)
CPT/HCPCS: 70491; Q9967

== ENCOUNTER 2022-10-29 11:01 | Emergency (ER) | payer OTHER, SELFPAY ==
[2022-10-29 11:15] VITALS: BP 124/89; PULSE 78; RESP 16; TEMP 36.3; O2SAT 99
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
== END 2022-10-29 12:06 | disposition home or self-care (01) ==
PROVIDERS: Emergency Provider Nurse Practitioner Family; PCP Internal Medicine
DX: S80.812A Abrasion, left lower leg, initial encounter (principal); S80.811A Abrasion, right lower leg, initial encounter; S16.1XXA Strain of muscle, fascia and tendon at neck level, initial encounter; V43.52XA Car driver injured in collision with other type car in traffic accident, initial encounter; E78.5 Hyperlipidemia, unspecified; I10 Essential (primary) hypertension; G47.33 Obstructive sleep apnea (adult) (pediatric); E11.9 Type 2 diabetes mellitus without complications
CPT/HCPCS: 99213; G0463

== ENCOUNTER 2022-12-08 10:31 | Outpatient (CLI) | payer OTHER, SELFPAY ==
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
[2022-12-08 11:13] LABS: Alanine Aminotransferase 61 U/L (6-50); Albumin Level 4.8 g/dL (3.5-5.1); Alkaline Phosphatase 62 U/L (38-126); Anion Gap 9 mmol/L (8-16); Aspartate Amino Transferase 64 U/L (17-59); Bilirubin,Total 0.6 mg/dL (0.2-1.3); Blood Urea Nitrogen 19 mg/dL (9-20); Calcium 9.3 mg/dL (8.4-10.2); Carbon Dioxide 25 mmol/L (22-30); Chloride 102 mmol/L (98-107); Cholesterol 205 mg/dL (0-200); Estimated Glomerular Filt Rate > 60; Glucose 109 mg/dL (65-110); HDL Direct 34 mg/dL; Potassium 4.3 mmol/L (3.4-5.0); Sodium 136 mmol/L (137-145); Triglycerides 92 mg/dL (<150)
[2022-12-08 11:24] LABS: LDL Cholesterol Direct 137 mg/dL
[2022-12-08 11:32] LABS: Hemoglobin A1C 6.1 % (<5.7)
== END 2022-12-08 10:32 | disposition home or self-care (01) ==
LOC: ANHLAB 10:32
PROVIDERS: PCP Nurse Practitioner; Visit Provider Nurse Practitioner
DX: M25.551 Pain in right hip (principal); E11.9 Type 2 diabetes mellitus without complications; E78.5 Hyperlipidemia, unspecified
CPT/HCPCS: 36415; 73502; 80053; 80061; 83036

== ENCOUNTER 2023-03-21 08:25 | Emergency (ER) | payer OTHER, SELFPAY ==
[2023-03-21 08:36] VITALS: BP 136/99; PULSE 70; RESP 16; TEMP 36.1; O2SAT 100
--- NOTE | 2023-03-21 08:37 | ED.UPPEXIN ---
HPI - Extremity Injury (Upper) General Chief Complaint: Extremity Injury, Upper Stated Complaint: finger left hand swollen Time Seen by Provider: 03/21/23 08:37 Source: patient Mode of arrival: ambulatory Limitations: no limitations History of Present Illness HPI narrative: 42 yo M presents with c/o redness, swelling and tenderness to R middle finger starting last night. Denies injury. 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 denies biting nails. All systems reviewed and negative except as noted above. Related Data Home Medications Medication Instructions Recorded Confirmed losartan 25 mg tablet 12.5 mg PO DAILY 02/10/19 03/21/23 metoprolol succinate 25 mg 25 mg PO DAILY 02/10/19 03/21/23 tablet,extended release 24 hr pantoprazole 40 mg tablet,delayed 40 mg PO BID 05/02/21 03/21/23 release testosterone cypionate 200 mg/mL 200 mg IM [id number] 05/02/21 03/21/23 intramuscular oil cabergoline 0.5 mg tablet 0.25 mg PO 2XW 12/02/21 03/21/23 budesonide 1 mg/2 mL suspension See Rx Instructions .Route .COMPLEX 03/21/23 03/21/23 for nebulization Allergies Allergy/AdvReac Type Severity Reaction Status Date / Time lisinopril Allergy Unknown Cough Verified 03/21/23 08:36 shellfish derived Allergy Unknown break out Verified 03/21/23 08:36 Review of Systems Review of Systems: CONSTITUTIONAL: Denies fever, chills, or sweats. EYES: Denies visual changes, redness, or discharge. ENT: Denies rhinorrhea, congestion, sore throat, or otalgia. CARDIOVASCULAR: Denies chest pain, palpitations, or edema. RESPIRATORY: Denies cough or dyspnea. GASTROINTESTINAL: Denies abdominal pain, nausea, vomiting, or diarrhea. GENITOURINARY: Denies dysuria or hematuria. SKIN: Denies rash or itching. MUSCULOSKELETAL: Denies back pain, joint pain, or myalgia. reports pain and swelling to R middle finger. NEUROLOGIC: Denies headache, numbness, or weakness. PSYCHIATRIC: Denies anxiety or depression. All other systems reviewed are negative, except as documented in HPI. [facility] Past Medical History Medical History Dyslipidemia Hypertension Obstructive sleep apnea syndrome Type 2 diabetes mellitus without complication, without long-term current use of insulin Surgical History Surgical History History of tonsillectomy Family History Family History Father Diabetes mellitus Hypertension Family history of diabetes mellitus in first degree relative Patient's father is in good health Mother Hypertension Patient's mother is in good health Grandparent Family history of malignant neoplasm of breast Diabetes mellitus Cerebrovascular accident Other Family history of allergic disorder Family history of malignant neoplasm Social History Social History (Updated 12/08/22 @ 09:56 by Rossana Rodrigues MA) Smoking status: Never smoker Alcohol intake: current Drinks per week: 1 Alcohol use details: social Substance use: never Substance use type: does not use Lack of Transportation: No Lack of Food: Never True Current Housing: I Have Housing Concerned About Future Housing: No Difficulty Paying Gas/Electric Bills: No Difficulty Paying for Meds: No Currently Unemployed: No Education: Master's Degree or Higher Difficulty w/ Childcare or Family Care: No Living arrangements: with family Occupation/Education: occupation 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 There is no relevant family history pertinent to the presenting complaint. Exam Narrative: GENERAL: This is a well-nourished, well-developed patient, in no apparent distress. HEAD: normocephal
== END 2023-03-21 08:54 | disposition home or self-care (01) ==
PROVIDERS: Emergency Provider Nurse Practitioner Family; PCP Nurse Practitioner
DX: L03.012 Cellulitis of left finger (principal); E78.5 Hyperlipidemia, unspecified; I10 Essential (primary) hypertension; E11.9 Type 2 diabetes mellitus without complications; Z79.84 Long term (current) use of oral hypoglycemic drugs
CPT/HCPCS: 99212; 99213; G0463

== ENCOUNTER 2023-06-20 12:41 | Emergency (ER) | payer OTHER, SELFPAY ==
--- NOTE | ~2023-06-20 | XR_ITS ---
EXAMINATION: XR chest 2V Exam Date/Time: 06/20/2023 13:34 CDT HISTORY: chest pain Comparison: 07/02/2019, images only. RESULT: Lines, tubes, and devices: None. Lungs and pleura: Mild diffuse reticulonodular opacities and cuffing. Cardiomediastinal silhouette: Stable. Other: No acute osseous or upper abdominal finding. IMPRESSION: Pulmonary opacities may represent bronchiolitis, as can be seen with atypical infection, asthma, aspi ration, and small airways disease. Reviewed, dictated and finalized at location K. IMPRESSION: Pulmonary opacities may represent bronchiolitis, as can be seen with atypical i nfection, asthma, aspiration, and small airways disease.
--- NOTE | 2023-06-20 12:42 | ECG_ITS ---
SEE SCANNED COPY FOR CONFIRMED REPORT MTDD
[2023-06-20 12:58] LABS: Basophils Percent Auto 0.8 % (0.2-1.2); Eosinophils Absolute Auto 0.4 K/mm3 (0-0.3); Eosinophils Percent Auto 7.1 % (0-4.4); Hematocrit 44.9 % (42.0-52.0); Hemoglobin 14.4 g/dL (14.0-18.0); Immature Granulocyte Absolute 0.01 K/mm3 (0.00-0.031); Immature Granulocyte Percent A 0.2 % (0-0.5); Lymphocytes Absolute Auto 3.06 K/mm3 (0.9-3.2); Lymphocytes Percent Auto 62.4 % (18.3-44.2); Mean Corpuscular HGB Conc 32.1 g/dl (32-36); Mean Corpuscular Hemoglobin 27.6 pg (26-34); Mean Platelet Volume 11.1 fl (7.4-10.4); Monocytes Absolute Auto 0.5 K/mm3 (0.1-0.6); Monocytes Percent Auto 10.8 % (2.6-8.5); Neutrophils Absolute Auto 0.9 K/mm3 (1.3-6.7); Neutrophils Percent Auto 18.7 % (45.5-73.1); Platelet Count Result 183 k/mm3 (150-375); Red Blood Count 5.22 M/mm3 (4.6-6.20); Red Cell Distribution Width 13.4 % (11.5-14.5); White Blood Count 4.9 K/mm3 (4.5-10.0)
[2023-06-20 13:09] LABS: Alanine Aminotransferase 106 U/L (6-50); Albumin Level 4.9 g/dL (3.5-5.1); Alkaline Phosphatase 66 U/L (38-126); Anion Gap 9 mmol/L (4-12); Aspartate Amino Transferase 72 U/L (17-59); Bilirubin,Total 0.7 mg/dL (0.2-1.3); Blood Urea Nitrogen 12 mg/dL (9-20); Calcium 9.8 mg/dL (8.4-10.2); Carbon Dioxide 24 mmol/L (22-30); Chloride 104 mmol/L (98-107); Estimated Glomerular Filt Rate > 60; Glucose 93 mg/dL (65-110); Lipase 162 U/L (23-300); Sodium 137 mmol/L (137-145)
[2023-06-20 13:10] VITALS: BP 142/75; PULSE 64; RESP 16; TEMP 36.2; O2SAT 98
[2023-06-20 13:14] LABS: Partial Thromboplastin Time 27.7 Seconds (22.3-36.8); Prothrombin Time 13.5 Seconds (11.1-14.7)
[2023-06-20] MEDS: ASPIRIN 81 MG CHEWABLE TABLET 324 MG PO (13:22)
[2023-06-20 13:23] VITALS: BP 155/99; PULSE 68; PULSE 72; RESP 18; O2SAT 97
[2023-06-20 13:23] LABS: Troponin I < 0.012 ng/mL (0.000-0.034)
[2023-06-20 14:29] VITALS: BP 146/98; PULSE 66; RESP 16; O2SAT 96
[2023-06-20 15:22] VITALS: BP 136/73; PULSE 64; RESP 20; O2SAT 96
--- NOTE | 2023-06-20 15:39 | ED.GENADULT ---
HPI - General Adult General Chief complaint: Chest Pain Stated complaint: chest pain Time Seen by Provider: 06/20/23 13:21 History of Present Illness HPI narrative: Patient is a 42-year-old male who presents ER with chest pain. Left-sided. Intermittent over the last month. Occurs at rest. Also walker with deep breath times. No alleviating factors. It has been associated with a persisting cough. No exertional dyspnea. Patient reports he has history of an enlarged aorta and is awaiting a follow-up MRI to see if it is enlarging. He reports he is on the borderline for surgery. Related Data Home Medications Medication Instructions Recorded Confirmed losartan 25 mg tablet 12.5 mg PO DAILY 02/10/19 03/21/23 metoprolol succinate 25 mg 25 mg PO DAILY 02/10/19 03/21/23 tablet,extended release 24 hr pantoprazole 40 mg tablet,delayed 40 mg PO BID 05/02/21 03/21/23 release testosterone cypionate 200 mg/mL 200 mg IM [id number] 05/02/21 03/21/23 intramuscular oil cabergoline 0.5 mg tablet 0.25 mg PO 2XW 12/02/21 03/21/23 budesonide 1 mg/2 mL suspension See Rx Instructions .Route .COMPLEX 03/21/23 03/21/23 for nebulization Allergies Allergy/AdvReac Type Severity Reaction Status Date / Time lisinopril Allergy Unknown Cough Verified 06/20/23 13:21 shellfish derived Allergy Unknown break out Verified 06/20/23 13:21 Review of Systems Review of Systems: All systems reviewed & are unremarkable except as noted in HPI and below Constitutional: Constitutional: Reports no additional constitutional complaints ENT: Reports system reviewed and no additional complaints, except as documented Cardiovascular: Cardiovascular: Reports chest pain, Denies rapid heart rate and Denies radiating jaw, neck or arm pain Respiratory: Respiratory: Denies chest congestion, Reports cough, Denies dyspnea and Denies wheezing Gastrointestinal: Gastrointestinal: Reports no additional gastrointestinal complaints [facility] Past Medical History Medical History Dyslipidemia Hypertension Obstructive sleep apnea syndrome Type 2 diabetes mellitus without complication, without long-term current use of insulin Surgical History Surgical History History of tonsillectomy Family History Family History Father Diabetes mellitus Hypertension Family history of diabetes mellitus in first degree relative Patient's father is in good health Mother Hypertension Patient's mother is in good health Grandparent Family history of malignant neoplasm of breast Diabetes mellitus Cerebrovascular accident Other Family history of allergic disorder Family history of malignant neoplasm Social History Social History (Updated 12/08/22 @ 09:56 by Rossana Rodrigues [facility]) Smoking status: Never smoker Alcohol intake: current Drinks per week: 1 Alcohol use details: social Substance use: never Substance use type: does not use Lack of Transportation: No Lack of Food: Never True Current Housing: I Have Housing Concerned About Future Housing: No Difficulty Paying Gas/Electric Bills: No Difficulty Paying for Meds: No Currently Unemployed: No Education: Master's Degree or Higher Difficulty w/ Childcare or Family Care: No Living arrangements: with family Occupation/Education: occupation 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 HEAD: Normocephalic, atraumatic. ENT: Mucous membranes moist. NECK: Supple. CHEST: Clear to auscultation. No respiratory distress. HEART: Regular rate and rhythm. Normal peripheral pulses. ABDOMEN: Soft, nontender, nondistended. EXTREMITIES: Normal range of motion. No ed
== END 2023-06-20 15:52 | disposition home or self-care (01) ==
PROVIDERS: Emergency Medicine; Emergency Provider Emergency Medicine; PCP Nurse Practitioner
DX: J21.9 Acute bronchiolitis, unspecified (principal); R09.1 Pleurisy; I10 Essential (primary) hypertension; E78.5 Hyperlipidemia, unspecified; E11.9 Type 2 diabetes mellitus without complications; G47.33 Obstructive sleep apnea (adult) (pediatric); Z79.84 Long term (current) use of oral hypoglycemic drugs
CPT/HCPCS: 36415; 71046; 80053; 83690; 84484; 85025; 85610; 85730; 93005; 99284; A9270

== ENCOUNTER 2023-06-29 08:41 | Outpatient (CLI) | payer OTHER, SELFPAY ==
[2023-06-29 09:40] LABS: Cholesterol 168 mg/dL (0-200); HDL Direct 36 mg/dL; Triglycerides 121 mg/dL (<150)
[2023-06-29 09:51] LABS: LDL Cholesterol Direct 112 mg/dL
[2023-06-29 10:38] LABS: Hemoglobin A1C 6.7 % (<5.7)
[2023-06-29 11:07] LABS: Hepatitis B Surface Antigen Negative (Negative)
[2023-06-29 11:12] LABS: HAV RESULT Negative (Negative); Hepatitis B Core IgM Result Negative (Negative)
[2023-06-29 11:24] LABS: Hepatitis C Virus Antibody Negative (Negative)
== END 2023-06-29 08:42 | disposition home or self-care (01) ==
LOC: ANHLAB 08:43
PROVIDERS: PCP Nurse Practitioner; Visit Provider Nurse Practitioner
DX: E11.9 Type 2 diabetes mellitus without complications (principal); R79.89 Other specified abnormal findings of blood chemistry; E78.5 Hyperlipidemia, unspecified
CPT/HCPCS: 36415; 80061; 80074; 83036

== ENCOUNTER 2023-07-16 10:01 | Outpatient (CLI) | payer OTHER, SELFPAY ==
--- NOTE | ~2023-07-16 | US_ITS ---
EXAMINATION: US abdomen limited DATE: 07/16/2023 11:13 INDICATION: Other specified abnormal findings of blood chemistry. TECHNIQUE: Multiple grayscale and Doppler ultrasound images of the abdomen were obtained. COMPARISON: 12/30/2020 FINDINGS: The pancreatic head and body are normal in appearance. The pancreatic tail is not visualized. Liver has normal contour, with a smooth surface. There is increased parenchymal echogenicity and coarsened echotexture consistent with diffuse hepatic steatosis. No liver lesion identified. No intrahepatic b iliary duct dilation suspected. Portal venous flow was seen in the hepatopetal, normal direction and has normal Doppler waveform. The gallbladder is normal in appearance with normal phrygian cap at the fundus. There is no cholelithiasis. The common bile duct measures 4 mm, which is normal. Sonographic Dugan sign was reported as negative by the recovery operator. The small visualized portion of the proximal aorta and inferior vena cava are normal. IMPRESSION: 1. Diffuse hepatic steatosis. Reviewed, dictated and finalized at location B.
== END 2023-07-16 10:02 | disposition home or self-care (01) ==
LOC: ANHIMG 10:02
PROVIDERS: PCP Nurse Practitioner; Visit Provider Nurse Practitioner
DX: R79.89 Other specified abnormal findings of blood chemistry (principal); K76.0 Fatty (change of) liver, not elsewhere classified
CPT/HCPCS: 76705

== ENCOUNTER 2023-12-10 09:44 | Emergency (ER) | payer OTHER, SELFPAY ==
[2023-12-10 09:46] VITALS: BP 126/87; PULSE 85; RESP 19; TEMP 36.3; O2SAT 95
--- NOTE | 2023-12-10 10:02 | ED.EAR ---
HPI - Ear Problem General Chief complaint: Ear Stated complaint: Sinus Time Seen by Provider: 12/10/23 10:00 Source: patient Mode of arrival: ambulatory Limitations: no limitations History of Present Illness HPI Narrative: Adriano is a 43-year-old male patient presenting to the clinic today with complaints of left-sided ear pain and left-sided throat pain. He reports that symptoms started 2-3 days ago however his left ear is filled muffled over the last week. Denies any fevers, chills, cough, chest pain, or shortness of breath. States that he has had a lot of nasal drainage and congestion. Related Data Home Medications Medication Instructions Recorded Confirmed losartan 25 mg tablet 12.5 mg PO DAILY 02/10/19 12/10/23 metoprolol succinate 25 mg 25 mg PO DAILY 02/10/19 12/10/23 tablet,extended release 24 hr pantoprazole 40 mg tablet,delayed 40 mg PO BID 05/02/21 12/10/23 release testosterone cypionate 200 mg/mL 200 mg IM [id number] 05/02/21 12/10/23 intramuscular oil cabergoline 0.5 mg tablet 0.25 mg PO 2XW 12/02/21 12/10/23 budesonide 1 mg/2 mL suspension See Rx Instructions .Route .COMPLEX 03/21/23 12/10/23 for nebulization Allergies Allergy/AdvReac Type Severity Reaction Status Date / Time lisinopril Allergy Unknown Cough Verified 12/10/23 10:02 shellfish derived Allergy Unknown break out Verified 12/10/23 10:02 Review of Systems Review of Systems: Pertinent positives per HPI. Patient denies any fever, chills, rash, headache, visual changes, dizziness, cough, shortness of breath, chest pain, palpitations, nausea, vomiting, diarrhea, constipation, abdominal pain, or any urinary issues. [facility] Past Medical History Medical History Dyslipidemia Hypertension Obstructive sleep apnea syndrome Type 2 diabetes mellitus without complication, without long-term current use of insulin Surgical History Surgical History History of tonsillectomy Family History Family History Father Diabetes mellitus Hypertension Family history of diabetes mellitus in first degree relative Patient's father is in good health Mother Hypertension Patient's mother is in good health Grandparent Family history of malignant neoplasm of breast Diabetes mellitus Cerebrovascular accident Other Family history of allergic disorder Family history of malignant neoplasm Social History Social History Smoking status: Never smoker Alcohol intake: current Drinks per week: 1 Alcohol use details: social Substance use: never Substance use type: does not use Lack of Transportation: No Lack of Food: Never True Current Housing: I Have Housing Concerned About Future Housing: No Difficulty Paying Gas/Electric Bills: No Difficulty Paying for Meds: No Currently Unemployed: No Education: Master's Degree or Higher Difficulty w/ Childcare or Family Care: No Living arrangements: with family Occupation/Education: occupation 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 There is no relevant family history pertinent to the patient complaint. Exam Narrative: General: Well-developed, well nourished, in no apparent distress Head: Normocephalic, atraumatic Eyes: Pupils equally round and reactive to light bilaterally, EOM intact, sclera and conjunctive clear, no discharge, lids normal Ears: TMs intact and congestion, left TM with mild bulging, tenderness to palpation over the left eustachian tube, ear canals clear, no drainage, grossly hearing normal. Nose: Nares patent, clear
[2023-12-10 10:18] LABS: EDSTREPNEGPOS1 Negative (Negative)
== END 2023-12-10 10:41 | disposition home or self-care (01) ==
PROVIDERS: Emergency Provider Nurse Practitioner Family; PCP Nurse Practitioner
DX: H69.92 Unspecified Eustachian tube disorder, left ear (principal); J06.9 Acute upper respiratory infection, unspecified; E78.5 Hyperlipidemia, unspecified; I10 Essential (primary) hypertension; E11.9 Type 2 diabetes mellitus without complications
CPT/HCPCS: 87081; 87880; 99213; G0463

== ENCOUNTER 2024-04-01 11:13 | Emergency (ER) | payer OTHER, SELFPAY ==
--- NOTE | ~2024-04-01 | XR_ITS ---
EXAMINATION: XR hand LT min 3V DATE: 04/01/2024 11:44 INDICATION: Puncture wound at the mid palm of the left hand TECHNIQUE: Posteroanterior, oblique and lateral views of the left hand were obtained. COMPARISON: None. FINDINGS: Alignment is normal. No fracture. Joint spaces are normal. Soft tissues are unremarkable. No soft tis jonnathan gas or radiopaque foreign bodies. IMPRESSION: 1. No osseous abnormality or radiopaque foreign bodies. Reviewed, dictated and finalized at location A. 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
--- NOTE | 2024-04-01 11:14 | ED.SKABFB ---
HPI - Skin/Abscess/Foreign Bdy General Chief complaint: Extremity Problem,Nontraumatic Stated complaint: Left Hand Pain/Foreign Object Time Seen by Provider: 04/01/24 11:14 Source: patient Mode of arrival: ambulatory Limitations: no limitations History of Present Illness HPI narrative: Adriano is a 43-year-old male patient presenting to the clinic today with complaints of left hand pain/injury. He reports that around 2:00 a.m. this morning he was trying did get someone on a piece of equipment to hole in he was not paying attention and put his hand down and a dirty nail went into the palm of his left hand. 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 Denies any fevers, chills, body aches. Tetanus is unknown Related Data Home Medications ?Medication ?Instructions ?Recorded ?Confirmed ?Last Taken ?Type losartan 25 mg tablet 12.5 mg PO DAILY 02/10/19 12/10/23 Unknown History metoprolol succinate 25 mg 25 mg PO DAILY 02/10/19 12/10/23 Unknown History tablet,extended release 24 hr pantoprazole 40 mg tablet,delayed 40 mg PO BID 05/02/21 12/10/23 Unknown History release testosterone cypionate 200 mg/mL 200 mg IM [id number] 05/02/21 12/10/23 Unknown History intramuscular oil cabergoline 0.5 mg tablet 0.25 mg PO 2XW 12/02/21 12/10/23 Unknown History budesonide 1 mg/2 mL suspension See Rx Instructions .Route .COMPLEX 03/21/23 12/10/23 Unknown History for nebulization Allergies Allergy/AdvReac Type Severity Reaction Status Date / Time lisinopril Allergy Unknown Cough Verified 04/01/24 11:17 shellfish derived Allergy Unknown break out Verified 04/01/24 11:17 Review of Systems Review of Systems: Pertinent positives per HPI. Patient denies any fever, chills, rash, headache, visual changes, dizziness, cough, runny nose, sore throat, shortness of breath, chest pain, palpitations, nausea, vomiting, diarrhea, constipation, abdominal pain, or any urinary issues. [facility] Past Medical History Medical History Hypertension Dyslipidemia Obstructive sleep apnea syndrome Type 2 diabetes mellitus without complication, without long-term current use of insulin Surgical History Surgical History History of tonsillectomy Family History Family History Father Diabetes mellitus Hypertension Family history of diabetes mellitus in first degree relative Patient's father is in good health Mother Hypertension Patient's mother is in good health Grandparent Family history of malignant neoplasm of breast Diabetes mellitus Cerebrovascular accident Other Family history of allergic disorder Family history of malignant neoplasm Social History Social History Smoking status: Never smoker Alcohol intake: current Drinks per week: 1 Alcohol use details: social Substance use: never Substance use type: does not use Lack of Transportation: No Lack of Food: Never True Current Housing: I Have Housing Concerned About Future Housing: No Difficulty Paying Gas/Electric Bills: No Difficulty Paying for Meds: No Currently Unemployed: No Education: Master's Degree or Higher Difficulty w/ Childcare or Family Care: No Living arrangements: with family Occupation/Education: occupation 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 There is no relevant family history pertinent to the patient complaint. Exam Narrative: General: Well-developed, well nourished, in no apparent distress Head: Normocephalic, atraumatic. Cardio: Regular rate and rhythm, s1 and s2 normal, no murmur appreciated. Resp: Clear to auscultation bilaterally, no rhonchi, rales, wheezing or rubs. Musculoskeletal: No deformity, tender to palpation with mild induration around the puncture wound to the left mid palm, mild redness, no drainage, hand grasp strong and equal, some numbness and tingling in the 4th finger when flexing the 4th finger, flexion extension of the 4th finger is strong against resistance, grossly normal range of motion, muscle strength strong and equal, peripheral pulse strong, no edema, no cyanosis, normal gait and station Course Course Emergency Course: Portions of this record may have been created with voice recognition software. Level of Care: Express Care Visit Vital Signs Vital signs: Vital Signs Temperature 36.4 C L 04/01/24 11:26 Pulse Rate 69 04/01/24 11:26 Respiratory Rate 16 04/01/24 11:26 Blood Pressure 137/94 H 04/01/24 11:26 Pulse Oximetry 96 04/01/24 11:26 Oxygen Delivery Room Air 04/01/24 11:26 Temperature 36.4 C L 04/01/24 11:26 Pulse Rate 69 04/01/24 11:26 Respiratory Rate 16 04/01/24 11:26 Blood Pressure 137/94 H 04/01/24 11:26 Pulse Oximetry 96 04/01/24 11:26 Oxygen Delivery Room Air 04/01/24 11:26 Vital signs reviewed MDM - Skin/Abscess/Foreign Bdy MDM Narrative Medical decision making narrative: At the time of visit patient is resting comfortably on the exam table. Patient appears to be nontoxic. Diagnostics: X-ray of the left hand was performed Medications: Tdap injection was given in the clinic today Plan: I suspect patient has a puncture wound to the left palm of this hand. Prescription for cephalexin was prescribed to cover for secondary infection as the wound was dirty. Patient is diabetic. Supportive measures were discussed with the patient and they voiced understanding discharge instructions and agrees to treatment plan. Return precautions reviewed Discharge Plan Discharge Clinical Impression: Puncture wound of hand without complication Qualifiers: Encounter type: initial encounter Laterality: left Qualified Code(s): S61.432A - Puncture wound without foreign body of left hand, initial encounter Patient Disposition: Home, Self-Care Condition: Stable Instructions: Antibiotic Form, Puncture Wound (ED) Additional Instructions: X-rays negative for any sign of fracture or foreign body Tdap given in the clinic today Keep wound clean and dry Take Keflex as prescribed May take tylenol/motrin for pain May apply triple antibiotic ointment to the wound twice daily times 48 hours then leave open air Keep bandage covered if draining Watch for signs and symptoms of infection- redness, streaking, swelling, purulent discharge, or increase in pain. Follow-up with your doctor in 2-3 days for wound check Patient Language: Croatian Prescriptions: New cephalexin 500 mg capsule 500 mg PO Q8H 7 Days Qty: 21 0RF No Action budesonide 1 mg/2 mL suspension for nebulization See Rx Instructions .ROUTE .COMPLEX Rx Instructions: Rx pantoprazole 40 mg tablet,delayed release (DR/EC) 40 mg PO BID testosterone cypionate 200 mg/mL oil 200 mg IM [id number] metformin 500 mg tablet 500 mg PO BID Qty: 180 1RF cabergoline 0.5 mg tablet 0.25 mg PO 2XW albuterol sulfate 90 mcg/actuation HFA aerosol inhaler 2 puff inhalation QID Qty: 6.7 0RF metoprolol succinate 25 mg tablet extended release 24 hr 25 mg PO DAILY losartan 25 mg tablet 12.5 mg PO DAILY Follow-up/Referrals: Greyson Green APRN [Primary Care Provider] - Time of Disposition: 11:58 Quality NIHSS Nursing Documentation ED NIHSS nursing documentation: reviewed/agree
[2024-04-01 11:26] VITALS: BP 137/94; PULSE 69; RESP 16; TEMP 36.4; O2SAT 96
[2024-04-01] MEDS: TETANUS,DIPHTHERIA,AC PERTUSSIS ADULT (0.5 ML) BOOSTRIX IM (11:52)
== END 2024-04-01 12:00 | disposition home or self-care (01) ==
PROVIDERS: Emergency Provider Nurse Practitioner Family; PCP Nurse Practitioner
DX: S61.432A Puncture wound without foreign body of left hand, initial encounter (principal); W45.0XXA Nail entering through skin, initial encounter; Z23 Encounter for immunization; I10 Essential (primary) hypertension; E78.5 Hyperlipidemia, unspecified; E11.9 Type 2 diabetes mellitus without complications
CPT/HCPCS: 73130; 90471; 90715; 99213; G0463

== ENCOUNTER 2024-05-28 00:27 | Emergency (ER) | payer OTHER, SELFPAY ==
--- OUTSIDE RECORDS SUMMARY | 2024-05-28 00:29 | XMS_ITS | Encounter Summary ---
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 Name Role Phone Diamond Alfonso MD Primary Care Provider + Aiden Moses MD Primary Care Provider [phone] Encounter Details Date Type Department Care Team (Late st Contact Info) Description 03/11/2018 Telephone [facility] Cardiology [address] [facility] [address] [place] [address] [place] [address] Chandler Hinson MD [address] [facility] [address] [place], [place] [id number] Social History Tobacco Use Types Packs/Day Years Used Date Smoking Tobacco: Never Smokeless Tobacco: Never Alcohol Use Standard Drinks/Week Comments Yes 0 (1 standard drink = 0.6 oz pur e alcohol) Sex and Gender Information Value Date Recorded Sex Assigned at Not on file 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
--- OUTSIDE RECORDS SUMMARY | 2024-05-28 00:30 | XMS_ITS | Clinical Summary ---
Author Organization [facility] Address [address] [place] [address] Care Team Providers Care Medical Claims Specialist Name Role Phone Unavailable Primary Care Provider Unavailabl e Source Comments [facility],non-owned Affiliates and Associated Physician Practices is amultiple site organization consisting of ambulatory clinics and hospital sitesin [place], [place], [place] and [place]. This disclosure is being madepursuant to the Care Everywhere program and may not contain all information available regarding this patient. Last updated 17.[facility] Immunizations Name Administration Dates Next Due INFLUENZA VACCINE, TRIV. ([place] UZONE; FLULAVAL; FLUARIX; AFLURIA TRIVALENT; 6MO+), 0.5 ML (IIV3) 12/19/2023 Social History Tobacco Use Types Packs/Day Years Used Date Smoking Tobacco: Never Smokeless Tobacco: Never Alcohol Use Standard Drinks/Week Comments Yes 0 (1 standard drink = 0.6 oz pur e alcohol) Sex and Gender Information Value Date Recorded Sex Assigned at Not on file Gender Identity Not on file Sexual Orientation Not on file Plan of Treatment Health Maintenance Due Date Last Done Comments LIPID TESTING 1982 HIV SCREENING 1997 HEPATITIS C SCREENING 07/17/2000 DTAP/TDAP/TD VACCINES (1 - Tdap) 2001 HEPATITIS B VACCINE (1 of 3 - 19+ 3-dose series) 2001 COVID-19 VACCINE (2023- season) 2023 06/08/2020, 05/14/2020 DEPRESSION SCREENING 03/05/2024 ZOSTER VACCINE (1 of 2) 2032 INFLUENZA VACCINE Completed 12/19/2023, , 03/13/2022, Additional history exists HIB VACCINE Aged Out No longer eligi ble based on patient's age to complete this topic HPV VACCINE Aged Out No longer eligi ble based on patient's age to complete this topic MENINGOCOCCAL (Group B) VACCINE SHARED DECISION-MAKING Aged Out No longer eligible based on patient's age to complete this topic MENINGOCOCCAL GROUPS A/C/Y/W VACCINE Aged Out No longer eligible based on patient's age to complete this topic PNEUMOCOCCAL VACCINE Aged Out No long er eligible based on patient's age to complete this topic Abdulkadir Watkins Personal/Family Self 1980
--- OUTSIDE RECORDS SUMMARY | 2024-05-28 00:30 | XMS_ITS | Clinical Summary ---
Author Organization [facility] Address [address] [place] [address] Care Team Providers Care Carbon Blocks Press Operator Name Role Phone Aiden Moses MD Primary Care Provider [phone] Allergies Active Allergy Reactions Criticality Noted Date Comments Lisinopril Cough Low 09/12/2017 Shellfish Containing Products Hives Medium Medications multivitamin tabletIndicatio ns:Vitamin Deficiency Prevention daily. 02/22/20 10 Active metFORMIN (GLUCOPHAGE) 500 mg tablet 2 times daily 04/06/19 16 Active BD SafetyGlide Syringe 3 mL 23 x 1 syringe Use to inject testosterone as directed. 12 each 03/29/19 22 Active EPINEPHrine 0.3 mg/0.3 mL auto-injection syringeIndicati ons:Anaphylaxis Inject into thigh or shoulder for allergic reaction. Call 911 after use. 1 each 3 06/09/[address] (PROTONIX) 40 mg EC tablet Take 1 tablet (40 mg total) by mouth 2 (two) times a day before breakfast and dinner 180 tablet 3 06/16/19 23 Active syringe with needle, safety (BD Integra Syringe) 3 mL 23 gauge x 1 syringe USE TO INJECT TESTOSTERONE EVERY 2 WEEKS 6 each 1 05/01/19 24 Active cabergoline (DOSTINEX) 0.5 mg tablet Take 4.5 tablets (2.25 mg total) by mouth 2 (two) times a week 108 tablet 3 05/31/19 24 Active atorvastatin (LIPITOR) 20 mg tablet Take 1 tablet (20 mg total) by mouth daily 90 tablet 3 06/05/19 24 Active losartan (COZAAR) 25 mg tabletIndicatio ns:Enlargement of aortic root,Left ventricular dilatation Take 1 tablet (25 mg total) by mouth daily 90 tablet 3 06/26/19 24 Active testosterone enanthate (Xyosted) 100 mg/0.5 mL auto-injector Inject 100 mg under the skin every 7 days 2 mL 5 08/07/19 24 Active syringe, disposable, (BD Luer-Belkis Syringe) 1 mL syringeIndicati ons:Microprolac tinoma (HCC),Gonadotro pin deficiency Luer-belkis 1 mL 25 gauge 5/8 - Use to inject testosterone as directed. 4 each 5 08/10/19 24 Active needle, disp, 18 G (BD Regular Bevel [place]) 18 gauge x 1 needleIndicatio ns:Microprolact inoma (HCC),Gonadotro pin deficiency Luer-Belkis 18 gauge 1 needle - Use to draw up testosterone 4 each 5 08/10/19 24 Active testosterone cypionate (DEPO-TESTOTERO NE) 200 mg/mL injectionIndica tions:Microprol actinoma (HCC),Gonadotro pin deficiency INJECT 1 ML INTRAMUSCULARLY EVERY 2 WEEKS 2 mL 5 12/26/19 24 Active budesonide (PULMICORT) 1 mg/2 mL nebulizer solution TAKE 4 ML (2 MG TOTAL) BY NEBULIZATION 2 (TWO) TIMES A DAY 720 mL 3 01/23/20 24 025 Active metoprolol XL (TOPROL-XL) 50 mg extended release tablet TAKE 1 TABLET BY MOUTH EVERY DAY 90 tablet 1 01/23/20 24 Active Active Problems Problem Noted Date Diagnosed Date Esophageal dysphagia 12/09/2019 Overview (12/09/2019): Added automatically from request for surgery [id number] Enlargement of aortic root 03/07/2017 Left ventricular dilatation 03/07/2017 Type 2 diabetes mellitus wit hout complication, without long-term current use of insulin 04/06/2015 Eosinophilic esophagitis 01/12/2015 Idiopathic eosinophilia 01/12/2015 Dysphagia 01/04/2015 COLUMBA (obstructive sleep apnea) 01/04/2015 Gonadotropin deficiency 06/27/2013 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 Scoliosis 02/21/2010 Resolved Problems Problem Noted Date Diagnosed Date Resolved Date Left ventricular systolic dysfunction 11/24/2016 03/26/2019 Immunizations Immunization Administration Dates Next Due DTP 08/06/1987, 4,02/01/1983,12/27,1982 DTaP 05/04/2017 Hep A, Ped Unspecified 06/07/2001 Hep B, Adolescent or Pediatric 11/11/1996,1996,05/07/1996 Influenza, Quadrivalent, Spl it, Preservative Free, Intramuscular 03/13/2022,12/03/2019,01/04/2019 Influenza, Trivalent, IM (MDV) 12/18/2017 Influenza, Unspecified 03/03/2023,12/03/2017 MMR 05/20/1992,11/16/1983 OPV 08/06/1987, 4,02/01/1983,12/27,1982 Pfizer SARS-CoV-2 Monovalent Vaccination (12+ Yrs) PURPLE 06/08/2020,05/14/2020 Td, adsorbed 06/30/1999,10/01/1989 Surgical History Surgery Date Site/Laterality Comments TONSILLECTOMY 03/05/2014 - 03/04/2015 Medical History Medical History Date Comments Prolactinoma (HCC) dx 2009 Scoliosis COLUMBA (obstructive sleep apnea) Enlarged aorta Diabetes (HCC) Allergic rhinitis Ear problems Dysphagia GERD (gastroesophageal reflux disease) Family History Medical History Relation Name Comments Diabetes Maternal Great-Grandmother F amily history of diabetes mellitus - (Added by TW Conv) Stroke Mother Esequiel Family history of cerebrovascular accident (CVA) - (Added by TW Conv) Cancer Other 1 Cancer - aunt a t age 55 and grandmother at age 57 (Added by TW Conv) Stroke Other 2 Stroke Syndrome - great grandmother at age 72 (Added by TW Conv) Hypertension Other 3 Hypertension - great grandmother at age 50, aunt at age 45 and grandmother at age 45 (Added by TW Conv) Diabetes Other 4 Diabetes Mellit us - great grandmother at age 68 (Added by TW Conv) Diabetes Other 5 Family history of diabetes mellitus - (Added by TW Conv) Relation Name Status Comments Maternal Great-Grandmother Mother Esequiel Other 1 Other 2 Other 3 Other 4 Other 5 Social History Tobacco Use Types Packs/Day Years Used Date Smoking Tobacco: Never Smokeless Tobacco: Never Tobacco Cessation:Counseling Given: Not Answered Alcohol Use Standard Drinks/Week Comments Yes 0 (1 standard drink = 0.6 oz pur e alcohol) AUDIT-C Answer Date Recorded Q1: How often do you have a drink containing alc ohol? Monthly or less 03/06/2023 Q2: How many drinks containi ng alcohol do you have on a typical day when you are drinking? 1 or 2 03/06/2023 Q3: How often do you have si x or more drinks on one occasion? Never 03/06/2023 Sex and Gender Information Value Date Recorded Sex Assigned at Not on file Legal Sex Male 9:08 AM COTTON EXPERT Gender Identity Male 11/05/2018 1:48 PM CDT Sexual Orientation Straight 11/05/2018 1: 48 PM CDT Obstetrics History Last Filed Vital Signs Vital Sign Reading Time Taken Comments Blood Pressure 139/88 08/07/2023 8:20 AM CDT Pulse 81 08/07/2023 8:20 AM CDT Temperature 36.4 C (97.5 F) 07/17/2023 12:08 PM CDT Respiratory Rate 18 06/07/2021 10:49 AM CDT Oxygen Saturation 98% 06/04/2023 9:17 AM CDT Inhaled Oxygen Concentration - - Weight 138.8 kg (306 lb) 08/07/2023 8:20 AM CDT Height 190.5 cm (6' 3 ) 08/07/2023 8:20 AM CDT Body Mass Index 38.25 08/07/2023 8:20 AM CDT Plan of Treatment Health Maintenance Due Date Last Done Comments Albumin Creatinine Ratio, Urine 1982 Depression Screening 1982 Prostate Cancer Screening-PSA 1982 Dilated Eye Exam 1982 Foot Exam 1982 Varicella Vaccines (1 of 2 - 13+ 2-dose series) 07/23/1995 Regular Well Visit/Exam 18-64 2000 Pneumococcal vaccine <65 (1 of 2 - PCV) 2001 Hemoglobin A1C 11/06/2019 05/06/2019 Covid-19 Vaccine (3 - season) 2023 06/08/2020, 05/14/2020 Influenza Vaccine (#1) 2023 3, 03/13/2022, 12/03/2019, Additional history exists Lipid Panel 06/03/2024 06/04/2023 eGFR 08/06/2024 08/07/2023, 04/0 03/2023, 11/17/2021 DTaP/Tdap/Td Vaccine (7 - Tdap) 05/05/2027 05/04/2017, 06/30/1999, 10/01/1989, Additional history exists Hepatitis B Screening Completed 11/17/2021 , 11/11/1996, 07/07/1996, Additional history exists Hepatitis C Screening Completed 11/17/2021 HPV Vaccines Aged Out No longer eligi ble based on patient's age to complete this topic Procedures Procedure Name Priority Date/Time Associated Diagnosis Comments EGFR Routine 08/07/2023 7:53 AM CDT Enlargement of aortic root Left ventricular dilatation Medication course changed LIPID PANEL Routine 06/04/2023 10:14 AM CDT Enlargement of aortic root Left ventricular dilatation HEPATITIS C ANTIBODY Routine 11/17/2021 12:36 PM CDT Eosinophilic esophagitis Elevated LFTs HEMOGLOBIN A1C Routine 05/06/2019 2:40 PM COTTON EXPERT Elevated glucose from Last 3 Months or Most Recently Relevant to Health Maintenance Results * eGFR (08/07/2023 7:53 AM CDT) eGFR 77 >=60 mL/min/1. 73 m2 Comment: Interpretive Data Reference Interval Normal >/= 90 mL/min/1.73m2 Mildly decreased* 60 - 89 mL/min/1.73m2 Mildly to moderately decreased 45 - 59 mL/min/1.73m2 Moderately to severely decreased 30 - 44 mL/min/1.73m2 Severely decreased 15 - 29 mL/min/1.73m2 Kidney Failure < 15 mL/min/1.73m2 *Relative to young adult level Estimated glomerular filtration rate is determined by the 2020 CKD-EPI equation recommended by the National Kidney Foundation (A Unifying Approach to GFR Estimation: Recommendations of the NKF-ASK Task Force on Reassessing the Inclusion of Race in Diagnosing Kidney Disease, JASN 2020). The CKD-EPI equation should not be used for patients with unstable renal function and has not been validated in children and those over 70. Current interpretive data was last reviewed 2021. Blood 08/07/2023 7:53 AM CDT 08/07/2023 7:56 AM CDT us Chandler Hinson MD LAB BLOOD ORDERABLES Final Re sult [facility] Department [place] [address] * (ABNORMAL) Lipid panel (06/04/2023 10:14 AM CDT) Cholesterol 204(H) 30 - 199 mg/dL Comment: Interpretive Data Ages < or = 19 years Acceptable: <170 mg/dL Borderline high: 170-199 mg/dL High: >or= 200 mg/dL Ages > or = 20 years Desirable: <200 mg/dL Borderline high: 200-239 mg/dL High: >or= 240 mg/dL Literature References: 1. Expert Panel on Integrated Guidelines for Cardiovascular Health and Risk Reduction in Children and Adolescents. Pediatrics 2011;128:S213 2. NCEP Expert Panel. Circulation 2004;110:227 Current Interpretive Data was last revised on 2017. Triglycerides 174(H) <=149 mg/dL [facility] Comment: Interpretive Data Ages < or = 9 years Acceptable: <75 mg/dL Borderline high: 75-99 mg/dL High: >or= 100 mg/dL Ages 10 to 20 years Acceptable: <90 mg/dL Borderline high: 90-129 mg/dL High: >or= 130 mg/dL Ages > or = 20 years Desirable: <150 mg/dL Borderline high: 150-199 mg/dL High: 200-499 mg/dL Very high: >or= 499 mg/dL Literature References: 1. Expert Panel on Integrated Guidelines for Cardiovascular Health and Risk Reduction in Children and Adolescents. Pediatrics 2011;128:S213 2. NCEP Expert Panel. Circulation 2004;110:227 Current Interpretive Data was last revised on 2017. HDL 30(L) >=40 mg/dL [facility] Comment: Interpretive Data Ages < or = 19 years Acceptable: >45 mg/dL Borderline low: 40-45 mg/dL Low: <40 mg/dL Ages > or = 20 years Desirable: >or= 60 mg/dL Low: <40 mg/dL Literature References: 1. Expert Panel on Integrated Guidelines for Cardiovascular Health and Risk Reduction in Children and Adolescents. Pediatrics 2011;128:S213 2. NCEP Expert Panel. Circulation 2004;110:227 Current Interpretive Data was last revised on 2017. LDL, calculated 139(H) <=129 mg/dL [facility] Comment: Interpretive Data Ages < or = 19 years Acceptable: <110 mg/dL Borderline high: 110-129 mg/dL High: >or= 130 mg/dL Ages > or = 20 years Optimal: <100 mg/dL Near optimal: 100-129 mg/dL Borderline high: 130-159 mg/dL High: >160 mg/dL Literature References: 1. Expert Panel on Integrated Guidelines for Cardiovascular Health and Risk Reduction in Children and Adolescents. Pediatrics 2011;128:S213 2. NCEP Expert Panel. Circulation 2004;110:227 Current Interpretive Data was last revised on 2017. Non-HDL Cholesterol 174 mg/dL [facility] Comment: Interpretive Data Ages < or = 19 years Acceptable: <120 mg/dL Borderline high: 120-144 mg/dL High: >145 mg/dL Ages > or = 20 years When triglycerides are >200 mg/dL, Non-HDL cholesterol is a secondary target of therapy with treatment goals that are 30 mg/dL greater than the LDL cholesterol target. Literature References: 1. Expert Panel on Integrated Guidelines for Cardiovascular Health and Risk Reduction in Children and Adolescents. Pediatrics 2011;128:S213 2. NCEP Expert Panel. Circulation 2004;110:227 Current Interpretive Data was last revised on 2017. Chol/HDL ratio 7 [facility] Blood 06/04/2023 10:1 4 AM CDT 06/04/2023 11:28 AM CDT us Chandler Hinson MD LAB BLOOD ORDERABLES Final Re sult [facility] Department [place] [address] * Hepatitis C antibody (11/17/2021 12:36 PM CDT) Pathologist [facility] Hep C Ab Nonreactive Nonreactive [facility] Comment:Antibodies to HCV no t detected. Does NOT exclude the possibility of recent exposure to HCV. Blood 11/17/2021 12:3 6 PM CDT 11/17/2021 12:53 PM CDT Lidia Renee MD LAB MICROBIOLOGY - GENERAL ORDERABLES Edited Result - Final Performing Organization Address [facility] [place] [address] * (ABNORMAL) Hemoglobin A1c (05/06/2019 2:40 PM COTTON EXPERT) Pathologist [facility] Hgb A1C 6.2(H) 4.0 - 5.6 % [facility] Estimated Average Glucose 131 mg/dL [facility] Comment: The ADA recommends reporting an estimated Average Glucose (eAG) with all Hemoglobin A1c results using the equation derived from a study of 507 normal and diabetic adults. Minority populations were underrepresented and children were not included. (Diabetes Care 31:2205-5186, 2008). The eAG is not equivalent to a fasting glucose. Blood specimen (specimen) 05/06/2019 2:40 PM COTTON EXPERT 05/06/2019 2:41 PM COTTON EXPERT Yaquelin Golden MD LAB BLOOD [place] [address] from Last 3 Months or Most Recently Relevant to Health Maintenance Insurance [facility] CHOICE PLUS [facility] CHOICE PLUS [facility] EMPL[employer]ES [facility] EMPLOYEES [facility] CHOICE PLUS [address] [employer] Advance Directives For more information, please contact: [phone] * Full Code (Latest Code Status on File) Date Activated Date Inactivated Comments 07/07/2020 11:14 AM 07/07/2020 3:50 PM Care Teams Carbon Blocks Press Operator Relationship Specialty Start Date End Date Aiden Moses MD [address] [place] [address] PCP - General Internal Medicine 03/20/18
--- OUTSIDE RECORDS SUMMARY | 2024-05-28 00:30 | XMS_ITS | Referral Summary ---
Author Organization [facility] Address [address] [place] [address] Care Team Providers Care Campus Manager Name Role Phone Aiden Moses MD Primary Care Provider [phone] Allergies Active Allergy Reactions Criticality Noted Date [...] 5 08/07/19 24 Active syringe, disposable, (BD Luer-Jabari Syringe) 1 mL syringeIndicati ons:Microprolac tinoma (HCC),Gonadotro pin deficiency Luer-jabari 1 mL 25 gauge 5/8 - Use to inject testosterone as directed. 4 each 5 08/10/19 24 Active needle, disp, 18 G (BD Regular Bevel [place]) 18 gauge x 1 needleIndicatio ns:Microprolact inoma (HCC),Gonadotro pin deficiency Luer-Jabari 18 gauge 1 needle - Use to [...] (12/09/2019): Added automatically from request for surgery [id number] Enlargement of aortic root 03/07/2017 Left ventricular [...] (12+ Yrs) PURPLE 06/08/2020,05/14/2020 Td, adsorbed 06/30/1999,10/01/1989 Social History Tobacco Use Types Packs/Day Years [...] on file Legal Sex Male 9:08 AM DRAFTER PATENT Gender Identity Male 11/05/2018 1:48 PM CDT Sexual Orientation Straight 11/05/2018 1: 48 PM CDT Last Filed Vital Signs Vital Sign Reading [...] 08/07/2023 8:20 AM CDT Plan of Treatment Not on file Procedures Procedure Name Priority Date/Time Associated Diagnosis Comments EGFR Routine 08/07/2023 7:53 AM CDT Enlargement of aortic root Left ventricular dilatation Medication course changed LIPID PANEL Routine 06/04/2023 10:14 AM CDT Enlargement of aortic root Left ventricular dilatation HEPATITIS C ANTIBODY Routine 11/17/2021 12:36 PM CDT Eosinophilic esophagitis Elevated LFTs HEMOGLOBIN A1C Routine 05/06/2019 2:40 PM DRAFTER PATENT Elevated glucose from Last 3 Months or [...] MD LAB BLOOD ORDERABLES Final Re sult [facility] Department [place] [address] * (ABNORMAL) Lipid panel (06/04/2023 10:14 AM [...] on 2017. Triglycerides 174(H) <=149 mg/dL [facility] Comment: Interpretive Data Ages < or [...] on 2017. HDL 30(L) >=40 mg/dL [facility] Comment: Interpretive Data Ages < or [...] 2017. LDL, calculated 139(H) <=129 mg/dL [facility] Comment: Interpretive Data Ages < or [...] revised on 2017. Non-HDL Cholesterol 174 mg/dL [facility] Comment: Interpretive Data Ages [...] last revised on 2017. Chol/HDL ratio 7 [facility] Blood 06/04/2023 10:1 4 AM CDT 06/04/2023 11:28 AM CDT us Chandler Hinson MD LAB BLOOD ORDERABLES Final Re sult [facility] Department [place] [address] * Hepatitis C antibody (11/17/2021 12:36 PM CDT) Hep C Ab Nonreactive Nonreactive [facility] Comment:Antibodies to HCV no t detected. Does NOT exclude the possibility of recent exposure to HCV. Blood 11/17/2021 12:3 6 PM CDT 11/17/2021 12:53 PM CDT Lidia Renee MD LAB MICROBIOLOGY - GENERAL ORDERABLES Edited Result - Final Performing Organization Address [facility] de Phone Number [facility] [place] [address] * (ABNORMAL) Hemoglobin A1c (05/06/2019 2:40 PM DRAFTER PATENT) Hgb A1C 6.2(H) 4.0 - 5.6 % [facility] Estimated Average Glucose 131 mg/dL [facility] Comment: The ADA recommends reporting an estimated Average Glucose (eAG) with all Hemoglobin A1c results using the equation derived from a study of 507 normal and diabetic adults. Minority populations were underrepresented and children were not included. (Diabetes Care 31:7251-5388, 2008). The eAG is not equivalent to a fasting glucose. Blood specimen (specimen) 05/06/2019 2:40 PM DRAFTER PATENT 05/06/2019 2:41 PM DRAFTER PATENT Yaquelin Golden MD LAB BLOOD ORDERABLES Final Result Performing Organization Address [facility] de Phone Number [facility] [place] [address] from Last 3 Months or Most Recently Relevant to Health Maintenance Insurance [facility] CHOICE PLUS [facility] CHOICE PLUS Member Subscriber Plan / Payer (Ef fective 2017-Present) Name:Andreia Amin Waqar Relation to Subscriber:Self Name:ANDREIA AMIN Waqar Payer ID:[id number] ([facility]) Type:[facility] HMO/PPO Address: [address] EMPLOYEES [employer] EMPLOYEES [facility] CHOICE PLUS [facility] [employer] Advance Directives For more information, please contact: [phone] * Full Code (Latest Code Status on File) Date Activated Date Inactivated Comments 07/07/2020 11:14 AM 07/07/2020 3:50 PM Care Teams Campus Manager Relationship Specialty Start Date End Date Aiden Moses MD [address] [place] [address] PCP - General Internal Medicine 03/20/18
[2024-05-28 00:32] VITALS: BP 156/94; PULSE 68; RESP 16; TEMP 36.2; O2SAT 100
--- OUTSIDE RECORDS SUMMARY | 2024-05-28 01:28 | XMS_ITS | Referral Summary ---
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 Triglycerides 174(H) <=149 mg/dL [facility] Comment: Interpretive Data Ages < or = [...] on 2017. HDL 30(L) >=40 mg/dL [facility] Comment: Interpretive Data Ages < or = [...] 2017. LDL, calculated 139(H) <=129 mg/dL [facility] Comment: Interpretive Data Ages < or = [...] ORDERABLES Final Re sult [facility] Department [place] [address] * Hepatitis C antibody (11/17/2021 12:36 PM CDT) Hep C Ab Nonreactive Nonreactive [facility] Comment:Antibodies to HCV no t detected. Does NOT exclude the possibility of recent exposure to HCV. Blood 11/17/2021 12:3 6 PM CDT 11/17/2021 12:53 PM CDT Lidia Renee MD LAB MICROBIOLOGY - GENERAL ORDERABLES Edited Result - Final Performing Organization Address [facility] de Phone Number [facility] [place] [address] * (ABNORMAL) Hemoglobin A1c (05/06/2019 2:40 PM GRAPHIC DESIGN INTERN) Hgb A1C 6.2(H) 4.0 - 5.6 % [facility] Estimated Average Glucose 131 mg/dL [facility] Comment: The ADA recommends reporting an estimated Average Glucose (eAG) with all Hemoglobin A1c results using the equation derived from a study of 507 normal and diabetic adults. Minority populations were underrepresented and children were not included. (Diabetes Care 31:1389-4257, 2008). The eAG is not equivalent to a fasting glucose. Blood specimen (specimen) 05/06/2019 2:40 PM GRAPHIC DESIGN INTERN 05/06/2019 2:41 PM GRAPHIC DESIGN INTERN Yaquelin Golden MD LAB BLOOD ORDERABLES Final Result Performing Organization Address [facility] de Phone Number [facility] [place] [address] from Last 3 Months or Most Recently Relevant to Health Maintenance Insurance [facility] CHO[facility] PLUS [facility] CHO[facility] PLUS Member Subscriber Plan / Payer (Ef fective 2017-Present) Name:Andreia Amin Waqar Relation to Subscriber:Self Name:ANDREIA AMIN Waqar Payer ID:[id number] ([facility]) Type:[facility] H[facility]/PPO Address: [address] EMPLOYEES [employer] EMPLOYEES [facility] CHOICE PLUS [facility] [employer] Advance Directives For more information, please contact: [phone] * Full Code (Latest Code Status on File) Date Activated Date Inactivated Comments 07/07/2020 11:14 AM 07/07/2020 3:50 PM Care Teams Worship Pastor Relationship Specialty Start Date End Date Aiden Moses MD [address] [place] [address] PCP - General Internal Medicine 03/20/18
--- OUTSIDE RECORDS SUMMARY | 2024-05-28 01:28 | XMS_ITS | Clinical Summary ---
Author Organization [facility] Address [address] [place] [address] Care Team Providers Care Track Repair Worker Name Role Phone Unavailable Primary Care Provider Unavailabl e Source Comments [facility],non-owned Affiliates and Associated Physician Practices is amultiple site organization consisting of ambulatory clinics and hospital sitesin [place], [place], [place] and [place]. This disclosure is being madepursuant to the Care Everywhere program and may not contain all information available regarding this patient. Last updated 17.[facility] Immunizations Name Administration Dates Next Due INFLUENZA [...]
--- OUTSIDE RECORDS SUMMARY | 2024-05-28 01:28 | XMS_ITS | Encounter Summary ---
Author Organization [facility] Address [address] [place] [address] Phone Care Team Providers Care Order Entry Administrator Name Role Phone Diamond Alfonso MD Primary Care Provider + Aiden Moses MD Primary Care Provider [phone] Encounter Details Date Type Department Care Team (Late st Contact Info) Description 03/11/2018 Telephone [facility] [address] 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
--- OUTSIDE RECORDS SUMMARY | 2024-05-28 01:28 | XMS_ITS | Clinical Summary ---
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 Department [place] [address] * (ABNORMAL) Lipid panel (06/04/2023 10:14 AM [...] on 2017. Triglycerides 174(H) <=149 mg/dL [facility] Comment: Interpretive Data Ages < or = [...] 2017. LDL, calculated 139(H) <=129 mg/dL [facility] Comment: Interpretive Data Ages < or = [...] revised on 2017. Non-HDL Cholesterol 174 mg/dL [facility] Comment: Interpretive Data Ages < or = [...] last revised on 2017. Chol/HDL ratio [address] [facility] Blood 06/04/2023 10:1 4 AM CDT 06/04/2023 11:28 AM CDT us Chandler Hinson MD LAB BLOOD ORDERABLES Final Re s[facility] [address] [facility] [place] [address] * Hepatitis C antibody (11/17/2021 12:36 PM CDT) Pathologist [facility] Hep C Ab Nonreactive Nonreactive [facility] Comment:Antibodies to HCV no t detected. Does NOT exclude the possibility of recent exposure to HCV. Blood 11/17/2021 12:3 6 PM CDT 11/17/2021 12:53 PM CDT Lidia Renee MD LAB MICROBIOLOGY - GENERAL ORDERABLES Edited Result - Final Performing Organization Address [facility] [place] [address] * (ABNORMAL) Hemoglobin A1c (05/06/2019 2:40 PM BOTTOM STAINER) Pathologist [facility] Hgb A1C 6.2(H) 4.0 - 5.6 % [facility] Estimated Average Glucose 131 mg/dL [facility] Comment: The ADA recommends reporting an estimated Average Glucose (eAG) with all Hemoglobin A1c results using the equation derived from a study of 507 normal and diabetic adults. Minority populations were underrepresented and children were not included. (Diabetes Care 31:1228-5831, 2008). The eAG is not equivalent to a fasting glucose. Blood specimen (specimen) 05/06/2019 2:40 PM BOTTOM STAINER 05/06/2019 2:41 PM BOTTOM STAINER Yaquelin Golden MD LAB BLOOD ORDERAB[place] [address] from Last 3 Months or Most Recently Relevant to Health Maintenance Insurance [facility] CHOICE PLUS Member Subscriber Plan / Payer (Ef fective 2017-Present) Name:ABDULKADIR AMIN Relation to Subscriber:Self Name:Abdulkadir Amin Payer ID:[id number] ([facility]) Type:[facility] HMO/PPO Address: [address] [place] [id number] [facility] CHOICE PLUS [facility] EMPLOYEES [facility] EMPLOYEES [facility] CHOICE PLUS [address] [employer] EM[employer]OYEES Advance Directives For more information, please contact: [phone] * Full Code (Latest Code Status on File) Date Activated Date Inactivated Comments 07/07/2020 11:14 AM 07/07/2020 3:50 PM Care Teams Hr Receptionist Relationship Specialty Start Date End Date Aiden Moses MD [address] [place] [address] PCP - General Internal Medicine 03/20/18
[2024-05-28 01:47] LABS: Basophils Absolute Auto 0.1 K/mm3 (0.0-0.1); Basophils Percent Auto 0.9 % (0.2-1.2); Eosinophils Absolute Auto 0.3 K/mm3 (0-0.3); Hematocrit 42.5 % (42.0-52.0); Hemoglobin 13.8 g/dL (14.0-18.0); Lymphocytes Absolute Auto 3.31 K/mm3 (0.9-3.2); Lymphocytes Percent Auto 58.9 % (18.3-44.2); Mean Corpuscular HGB Conc 32.5 g/dl (32-36); Mean Corpuscular Hemoglobin 27.9 pg (26-34); Mean Corpuscular Volume 85.9 fl (80-100); Mean Platelet Volume 11.3 fl (7.4-10.4); Monocytes Absolute Auto 0.5 K/mm3 (0.1-0.6); Monocytes Percent Auto 9.3 % (2.6-8.5); Neutrophils Absolute Auto 1.4 K/mm3 (1.3-6.7); Neutrophils Percent Auto 24.9 % (45.5-73.1); Platelet Count Result 165 k/mm3 (150-375); Red Blood Count 4.95 M/mm3 (4.6-6.20); Red Cell Distribution Width 13.2 % (11.5-14.5); White Blood Count 5.6 K/mm3 (4.5-10.0)
--- NOTE | 2024-05-28 01:51 | ED_ITS ---
HPI - Extremity Problem General Chief complaint: Extremity Problem,Nontraumatic Stated complaint: pain in both legs, swelling in right Time Seen by Provider: 05/28/24 01:17 Source: patient Mode of arrival: ambulatory Limitations: no limitations History of Present Illness HPI Narrative: This is a 43-year-old male who presents to the ED for chief complaint of lower extremity pain over the past couple of weeks. Patient states that he has noticed increased swelling to the right lower extremity. Patient states that he has intermittent numbness and tingling to the bilateral feet. States the right calf seems to be more swollen and tender than left. Denies any specific injuries. States he has been on atorvastatin for almost a year with no issues. Denies fevers, chills, nausea, vomiting, extremity weakness. Related Data Home Medications ?Medication ?Instructions ?Recorded ?Confirmed ?Last Taken ?Type losartan 25 mg tablet 12.5 mg PO DAILY 02/10/19 12/10/23 Unknown History metoprolol succinate 25 mg 25 mg PO DAILY 02/10/19 12/10/23 Unknown History tablet,extended release 24 hr pantoprazole 40 mg tablet,delayed 40 mg PO BID 05/02/21 12/10/23 Unknown History release testosterone cypionate 200 mg/mL 200 mg IM [id number] 05/02/21 12/10/23 Unknown History intramuscular oil cabergoline 0.5 mg tablet 0.25 mg PO 2XW 12/02/21 12/10/23 Unknown History budesonide 1 mg/2 mL suspension See Rx Instructions .Route .COMPLEX 03/21/23 12/10/23 Unknown History for nebulization Allergies Allergy/AdvReac Type Severity Reaction Status Date / Time lisinopril Allergy Unknown Cough Verified 04/01/24 11:17 shellfish derived Allergy Unknown break out Verified 04/01/24 11:17 Review of Systems 2 Review of Systems: All systems as dictated in [facility] Past Medical History Medical History Hypertension Dyslipidemia Obstructive sleep apnea syndrome Type 2 diabetes mellitus without complication, without long-term current use of insulin Surgical History Surgical History History of tonsillectomy Family History Family History Father Diabetes mellitus Hypertension Family history of diabetes mellitus in first degree relative Patient's father is in good health Mother Hypertension Patient's mother is in good health Grandparent Family history of malignant neoplasm of breast Diabetes mellitus Cerebrovascular accident Other Family history of allergic disorder Family history of malignant neoplasm Social History Social History Smoking status: Never smoker Alcohol intake: current Drinks per week: 1 Alcohol use details: social Substance use: never Substance use type: does not use Lack of Transportation: No Lack of Food: Never True Current Housing: I Have Housing Concerned About Future Housing: No Difficulty Paying Gas/Electric Bills: No Difficulty Paying for Meds: No Currently Unemployed: No Education: Master's Degree or Higher Difficulty w/ Childcare or Family Care: No Living arrangements: with family Occupation/Education: occupation 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 HEAD: Normocephalic, atraumatic. EYES: PERRLA and EOMI. ENT: Nares clear, no rhinorrhea or epistaxis. Mucous membranes moist. Oropharynx without tonsillar hypertrophy exudate or other lesions. NECK: Supple. No adenopathy or masses. CHEST: No respiratory distress. Clear to auscultation. No wheezes rales or rhonchi HEART: Regular rate and rhythm. No murmur heard. Normal peripheral pulses. ABDOMEN: Soft, nontender, nondistended, normal active bowel sounds. MSK: Mild tenderness to the bilateral ankles. There is mildly increased swelling of ankle and calf when compared to left. No warmth or erythema. Neurovascularly intact distally bilaterally. SKIN: Warm, dry, no rash. NEURO: Alert and oriented x4. No focal deficits. PSYCH: Normal mood and affect. Course Vital Signs Vital signs: Vital Signs Temperature 97.1 F L 05/28/24 00:32 Pulse Rate 68 05/28/24 00:32 Respiratory Rate 16 05/28/24 00:32 Blood Pressure 156/94 H 05/28/24 00:32 Pulse Oximetry 100 05/28/24 00:32 Temperature 97.1 F L 05/28/24 00:32 Pulse Rate 68 05/28/24 02:44 Respiratory Rate 14 05/28/24 02:44 Blood Pressure 135/99 H 05/28/24 02:44 Pulse Oximetry 99 05/28/24 02:44 MDM - Extremity (Nontraumatic) MDM Narrative Medical decision making narrative: This is a 43-year-old male who presents to the ED for chief complaint of lower extremity pain and swelling, worse on the right. Vitals are normal. Exam remarkable for the above. No significant unilateral leg swelling or erythema to indicate infection or DVT. Lab work coming back unremarkable overall. White count is normal. CMP shows mild elevations to AST and ALT. CK is normal. D- dimer is negative. Do not have ultrasound services for DVT rule out tonight. Pain seems most consistent with a peripheral neuropathy or other musculoskeletal cause of pain. Patient will be discharged in stable condition. Supportive measures discussed and return precautions given. Patient is understanding and agreeable with plan for discharge with PCP follow-up. Lab Data 05/28/24 01:43 05/28/24 01:43 Labs: Lab Results 05/28/24 Range/Units 01:43 WBC 5.6 (4.5-10.0) K/mm3 RBC 4.95 (4.6-6.20) M/mm3 Hgb 13.8 L (14.0-18.0) g/dL Hct 42.5 (42.0-52.0) % MCV 85.9 (80-100) fl MCH 27.9 (26-34) pg MCHC 32.5 (32-36) g/dl RDW 13.2 (11.5-14.5) % Plt Count 165 (150-375) k/mm3 MPV 11.3 H (7.4-10.4) fl Immature Gran % (Auto) 0.0 (0-0.5) % Neut % (Auto) 24.9 L (45.5-73.1) % Lymph % (Auto) 58.9 H (18.3-44.2) % [place] % (Auto) 9.3 H (2.6-8.5) % Eos % (Auto) 6.0 H (0-4.4) % Baso % (Auto) 0.9 (0.2-1.2) % Lymph # (Auto) 3.31 H (0.9-3.2) K/mm3 [place] # (Auto) 0.5 (0.1-0.6) K/mm3 Eos # (Auto) 0.3 (0-0.3) K/mm3 Baso # (Auto) 0.1 (0.0-0.1) K/mm3 Abs Immat Gran (auto) 0.00 (0.00-0.031) K/mm3 Absolute Neuts (auto) 1.4 (1.3-6.7) K/mm3 Absolute Nucleated RBC 0.000 (0.0-0.012) K/mm3 Nucleated RBC % 0.0 (0.0-0.2) % PT 14.3 (11.1-14.7) Seconds INR 1.1 APTT 28.1 (22.3-36.8) Seconds D-Dimer < 0.27 (<0.48) ug/mL Sodium 138 (137-145) mmol/L Potassium 4.2 (3.4-5.0) mmol/L Chloride 101 (98-107) mmol/L Carbon Dioxide 24 (22-30) mmol/L Anion Gap 13 H (4-12) mmol/L BUN 18 (9-20) mg/dL Creatinine 1.21 (0.7-1.3) mg/dL Estim Creat Clear Calc 107 ml/min Estimated GFR > 60 (59 - ) Glucose 101 (65-110) mg/dL Calcium 9.6 (8.4-10.2) mg/dL Total Bilirubin 0.7 (0.2-1.3) mg/dL AST 80 H (17-59) U/L ALT 128 H (6-50) U/L Alkaline Phosphatase 61 (38-126) U/L Total Creatine Kinase Pending Total Protein 8.0 (6.3-8.2) g/dL Albumin 4.8 (3.5-5.1) g/dL Discharge Plan Discharge Clinical Impression: Bilateral leg pain Patient Disposition: Home, Self-Care Condition: Stable Instructions: Antibiotic Form Additional Instructions: Exam and workup today are reassuring overall. No evidence of blood clot. Please follow-up with PCP closely regarding possible neuropathy like pains. Continue with Tylenol 500 mg and ibuprofen 600 mg of any 6 hours as needed for pain. If you have any new or worsening symptoms please return to the ER for further evaluation. Patient Language: Grenadian Prescriptions: No Action budesonide 1 mg/2 mL suspension for nebulization See Rx Instructions .ROUTE .COMPLEX Rx Instructions: Rx cephalexin 500 mg capsule 500 mg PO Q8H 7 Days Qty: 21 0RF pantoprazole 40 mg tablet,delayed release (DR/EC) 40 mg PO BID testosterone cypionate 200 mg/mL oil 200 mg IM [id number] metformin 500 mg tablet 500 mg PO BID Qty: 180 1RF cabergoline 0.5 mg tablet 0.25 mg PO 2XW albuterol sulfate 90 mcg/actuation HFA aerosol inhaler 2 puff inhalation QID Qty: 6.7 0RF metoprolol succinate 25 mg tablet extended release 24 hr 25 mg PO DAILY losartan 25 mg tablet 12.5 mg PO DAILY Follow-up/Referrals: Greyson Green APRN [Primary Care Provider] - Time of Disposition: 02:35
[2024-05-28 02:01] LABS: Alanine Aminotransferase 128 U/L (6-50); Albumin Level 4.8 g/dL (3.5-5.1); Alkaline Phosphatase 61 U/L (38-126); Anion Gap 13 mmol/L (4-12); Aspartate Amino Transferase 80 U/L (17-59); Bilirubin,Total 0.7 mg/dL (0.2-1.3); Blood Urea Nitrogen 18 mg/dL (9-20); Calcium 9.6 mg/dL (8.4-10.2); Carbon Dioxide 24 mmol/L (22-30); Chloride 101 mmol/L (98-107); Estimated CRCL calculation 107 ml/min; Estimated Glomerular Filt Rate > 60; Glucose 101 mg/dL (65-110); Potassium 4.2 mmol/L (3.4-5.0); Sodium 138 mmol/L (137-145)
[2024-05-28 02:22] LABS: INR 1.1; Prothrombin Time 14.3 Seconds (11.1-14.7)
[2024-05-28 02:23] LABS: Partial Thromboplastin Time 28.1 Seconds (22.3-36.8)
[2024-05-28 02:28] LABS: D Dimer < 0.27 ug/mL (<0.48)
[2024-05-28 02:44] VITALS: BP 135/99; PULSE 68; RESP 14; O2SAT 99
[2024-05-28 03:06] LABS: Creatine Kinase 1584 U/L (55-170)
== END 2024-05-28 02:46 | disposition home or self-care (01) ==
PROVIDERS: Emergency Provider Physician Assistant; PCP Nurse Practitioner
DX: M79.605 Pain in left leg (principal); M79.604 Pain in right leg; I10 Essential (primary) hypertension; E78.5 Hyperlipidemia, unspecified; E11.9 Type 2 diabetes mellitus without complications; G47.33 Obstructive sleep apnea (adult) (pediatric); Z79.899 Other long term (current) drug therapy; Z79.84 Long term (current) use of oral hypoglycemic drugs
CPT/HCPCS: 36415; 80053; 82550; 85025; 85380; 85610; 85730; 99283

== ENCOUNTER 2024-09-01 08:28 | Outpatient (CLI) | payer OTHER, SELFPAY ==
--- NOTE | ~2024-09-01 | US_ITS ---
BILATERAL LOWER EXTREMITY VENOUS ULTRASOUND Ordering provider: Greyson Green APRN History: . M51.139 - Pain in right lower leg . Comparison: None. FINDINGS: RIGHT LOWER EXTREMITY VEINS: --COMMON FEMORAL: Patent and free of thrombus. Normal compressibility, phasic flow and augmentation. --PROXIMAL SUPERFICIAL FEMORAL: Patent and free of thrombus. Normal compressibility, phasic flow and augmentation. --DISTAL SUPERFICIAL FEMORAL: Patent and free of thrombus. Normal compressibility, phasic flow and au gmentation. --POPLITEAL: Patent and free of thrombus. Normal compressibility, phasic flow and augmentation. --POSTERIOR TIBIAL: Patent and free of thrombus. Normal compressibility, phasic flow and augmentation . LEFT LOWER EXTREMITY VEINS: --COMMON FEMORAL: Patent and free of thrombus. Normal compressibility, phasic flow and augmentation. --PROXIMAL SUPERFICIAL FEMORAL: Patent and free of thrombus. Normal compressibility, phasic flow and augmentation. --DISTAL SUPERFICIAL FEMORAL: Patent and free of thrombus. Normal compressibility, phasic flow and au gmentation. --POPLITEAL: Patent and free of thrombus. Normal compressibility, phasic flow and augmentation. --POSTERIOR TIBIAL: Patent and free of thrombus. Normal compressibility, phasic flow and augmentation . IMPRESSION: Negative bilateral lower extremity venous US. No deep vein thrombosis. Reviewed, dictated and finalized at location A.
== END 2024-09-01 08:29 | disposition home or self-care (01) ==
PROVIDERS: PCP Nurse Practitioner; Visit Provider Nurse Practitioner
DX: M79.661 Pain in right lower leg (principal); M79.662 Pain in left lower leg
CPT/HCPCS: 93970